=== PATIENT | male | born 1930 | race Caucasian/White ===

== ENCOUNTER 2017-07-03 22:52 | Inpatient (IN) | payer BC ==
[~2017-07-03] VITALS: Ht 170.2 cm; Wt 77.5 kg
[~2017-07-03 22:52] MED LIST: ALBU18HF INHALATION; ATOR20TA38 PO; DABI150C PO; FINA5TAB4 PO; FURO20TA3 PO; IPRA12.93 INH; LEVO25TA53 PO; METO100T13 PO; METO1TAB8 PO; TERA2CAP3 PO
[2017-07-03 23:36] VITALS: TEMP 99.8
[2017-07-03 23:50] LABS: ABNORMAL IP MESSAGE 1; BASOPHILS % 0.3 % (0.0-2.0); EOSINOPHILS # 0.1 10^3/ul (0.0-0.5); EOSINOPHILS % 0.4 % (0.0-7.0); HEMATOCRIT 39.6 % (42.0-52.0); LYMPHOCYTES # 1.2 10^3/ul (0.8-2.9); LYMPHOCYTES % 10.1 % (15.0-51.0); MEAN CORPUSCULAR HEMOGLOBIN 18.9 pg (29.0-33.0); MEAN CORPUSCULAR HGB CONC 30.3 g/dl (32.0-37.0); MEAN CORPUSCULAR VOLUME 62.4 fl (82.0-101.0); MEAN PLATELET VOLUME 9.9 fl (7.4-10.4); MONOCYTE # 1.3 10^3/ul (0.3-0.9); MONOCYTES % 11.1 % (0.0-11.0); NEUTROPHIL # 8.8 10^3/ul (1.6-7.5); NEUTROPHILS % 77.7 % (39.0-77.0); PLATELET COUNT 266 10^3/UL (140-415); POSITIVE DIFF @See below; RED BLOOD COUNT 6.35 10^6/ul (4.70-6.10); RED CELL DISTRIBUTION WIDTH 20.4 % (11.5-14.5); WHITE BLOOD COUNT 11.4 10^3/ul (4.8-10.8)
[2017-07-04] VITALS (9 sets, daily range): BP systolic 113–156; BP diastolic 60–72; PULSE 62–120; RESP 16–20; Ht 170.2 cm; Wt 77.5 kg
[2017-07-04 00:09] LABS: INR 1.6; PROTIME 19.2 Sec (12.2-14.2); PT RATIO 1.5
[2017-07-04 00:10] LABS: PARTIAL THROMBOPLASTIN TIME 66.9 Sec (25.0-35.0)
[2017-07-04 00:13] LABS: ANION GAP 15 (8-16); BLOOD UREA NITROGEN 12 mg/dl (7-20); CALCIUM 8.5 mg/dl (8.4-10.2); CARBON DIOXIDE 34 mmol/L (21-31); CHLORIDE 95 mmol/L (97-110); CREATININE 0.74 mg/dl (0.61-1.24); GLUCOSE 101 mg/dl (70-220); POTASSIUM 4.5 mmol/L (3.5-5.1); SODIUM 139 mmol/L (135-144)
--- NOTE | 2017-07-04 00:17 | RADRPT ---
PROCEDURE: Portable chest x-ray. CLINICAL INDICATION: 86-year-old male chest pain TECHNIQUE: Portable AP view of the chest. COMPARISON: August 28, 2016 FINDINGS: Atherosclerotic calcification and tortuosity of the thoracic aorta. Enlarged cardiopericardial silh ouette has increased in size since prior exam. Left upper lobe lung mass has increased in size and measures 6.5 cm and previously measured 4.7 cm. It is incompletely evaluated on this portable x-ray. Pulmonary vessels are prominent and indistinc t likely due to pulmonary edema. Bilateral lower lobe lung opacity likely represents atelectasis. There are small to moderate bilateral pleural effusions larger on the right. Negative for pneumotho rax. No acute bony abnormality. IMPRESSION: Left upper lobe lung mass has increased in size since prior chest x-ray and remains concerning for a lung neoplasm. Recommend further evaluation with CT if not previously performed. Pulmonary vessels are prominent and indistinct likely due to interstitial pulmonary edema with bilat eral pleural effusions larger on the right. Cardiopericardial silhouette has increased in size since prior day exam that may be due to cardiomeg carol and/or a pericardial effusion. RPTAT: HCTS Physician Amanda Date Time Electronically viewed and signed by Physician Amanda on 07/04/2017 00:17 /
[2017-07-04 00:25] LABS: B-TYPE NATRIURETIC PEPTIDE 1260 PG/ML (0-450)
[2017-07-04 00:26] LABS: TROPONIN-I < 0.012 ng/ml (0.00-0.12)
[2017-07-04] MEDS ORDERED: METOPROLOL 5 MG INJ IV ONE (00:30)
[2017-07-04] MEDS ORDERED: DILTIAZEM 25 MG INJ IV ONE (00:30)
[2017-07-04] MEDS ORDERED: CEFTRIAXONE 1 GM/50 ML (PMX) 50 ML IVPB ONE (01:00)
[2017-07-04] MEDS ORDERED: ONDANSETRON 4 MG INJ IV PRN ×2 (02:00→02:30)
[2017-07-04] MEDS ORDERED: ACETAMINOPHEN 325 MG TAB PO PRN ×2 (02:00→02:30)
[2017-07-04] MEDS ORDERED: DOCUSATE SODIUM 100 MG CAP PO PRN (02:30)
[2017-07-04] MEDS ORDERED: NITROGLYCERIN (SL) 0.4 MG TAB SL PRN (02:30)
[2017-07-04] MEDS ORDERED: HYDROCODONE/APAP (5/325) TAB PO PRN (02:30)
[2017-07-04] MEDS ORDERED: BISACODYL (EC) 5 MG TAB PO PRN (02:30)
[2017-07-04] MEDS ORDERED: morphine 2 MG INJ IV PRN (02:30)
[2017-07-04] MEDS ORDERED: NACL 0.9% 3 ML SYG IV SCH (02:30)
[2017-07-04] MEDS ORDERED: MAGNESIUM HYDROXIDE 30ML CUP PO PRN (02:30)
--- NOTE | 2017-07-04 02:44 | RADRPT ---
PROCEDURE: CT angiogram chest. CLINICAL INDICATION: Shortness of breath. TECHNIQUE: CT angiogram of the chest was performed utilizing axial images with reconstructions in sagittal and coronal planes following the intravenous administration of 100 cc Omnipaque 350 contras t. The administered radiation dose is CTDI 15 mGy, DLP 566 mGy-cm. COMPARISON: No pertinent prior examinations are submitted for comparison. FINDINGS: Pulmonary angiogram: The pulmonary arteries are adequately opacified to the level of the segmental pulmonary artery branches. There is minimal respiratory motion artifact. There is no evidence of p ulmonary embolus. Aortogram: There is no evidence of aortic dissection or aneurysm. Major branches of the aorta are patent. Chest: There is a 7.1 x 6.5 cm mass in the left upper lobe. A smaller, adjacent 2.8 cm 22 nodule is also p resent. There are underlying pulmonary emphysematous changes. There are moderate bilateral pleural effusions with associated atelectasis. Some debris is noted within the right mainstem bronchus. Th ere is likely some mucus plugging in the lower lobe bronchi bilaterally. There is also opacification of the left upper lobe bronchi at the level of the mass, suggesting the presence of endobronchial s pread of tumor. Adenopathy is noted in the left greater than right hilar regions as well as throughout the paratrach eal and subcarinal regions. There is moderate cardiomegaly with small pericardial effusion. Bilateral gynecomastia is noted. Visualized Upper abdomen: Right renal cysts are noted. The liver has a nodular contour suggestive o f cirrhosis. Mild intra-abdominal ascites is noted. Osseous structures: Unremarkable. IMPRESSION: No evidence of pulmonary embolus. Left lung mass most compatible with neoplasm. There may be endobronchial spread of tumor. Mediastinal and bilateral hilar adenopathy. Bilateral pleural effusions. Small pericardial effusion. Likely cirrhotic liver with mild intra-abdominal ascites. RPTAT: HIKT .Ilya Wiggins MD, Date Time Electronically viewed and signed by .Ilya Wiggins MD, on 07/04/2017 02:43 .T/
--- NOTE | 2017-07-04 03:50 | ERA ---
ER Documentation Chief Complaint Date/Time DATE: 07/04/17 TIME: 03:37 Chief Complaint bilateral LE swelling, unable to urinate, shortness of breath, and cough HPI 86-year-old male presents along with his son for bilateral leg swelling is increasing as well as shortness of breath. He also has a cough. He has had some chest discomfort without saying that he is actual chest pain. He is to be on Lasix but was recently taken off of it by his physician. ROS All systems reviewed and are negative except as per history of present illness. Medications Home Meds Active Scripts Ipratropium [place]* (Atrovent HFA*) 12.9 Gm Aer.w.adap, 4 PUFF INH Q4H RESP THERAPY Y for wheezing for 30 Days, #1 INHALER Prov:ANDRE JIMENEZ M.D. 08/29/16 Dabigatran Etexilate Mesylate* (Pradaxa*) 150 Mg Capsule, 150 MG PO BID, #60 CAP Prov:ANDRE JIMENEZ M.D. 08/29/16 Reported Medications Furosemide* (Furosemide*) 20 Mg Tablet, 20 MG PO DAILY, #60 TAB 08/28/16 Finasteride* (Finasteride*) 5 Mg Tablet, 5 MG PO DAILY, TAB 08/28/16 Metoprolol Succinate* (Toprol XL*) 100 Mg Tab.sr.24h, 100 MG PO DAILY, #30 TAB 08/28/16 Atorvastatin Calcium* (Atorvastatin Calcium*) 20 Mg Tablet, 20 MG PO QHS, #30 TAB 08/28/16 Levothyroxine Sodium* (Levothyroxine Sodium*) 25 Mcg Tablet, 25 MCG PO BEFORE BREAKFAST, #30 TAB 08/28/16 Terazosin Hcl* (Terazosin Hcl*) 2 Mg Capsule, 2 MG PO BID, CAP 08/28/16 Allergies Allergies: Coded Allergies: Penicillins (Verified Allergy, Unknown, rash, 08/28/16) aspirin (Verified Allergy, Unknown, rash, 08/28/16) PMhx/Soc History of Surgery: Yes (HERNIA REPAIR, TONSILECTOMY, APPENDECTOMY) Hx Respiratory Disorders: Yes (COPD) Hx Cardiac Disorders: Yes (HTN, A-FIB) Hx Miscellaneous Medical Probl: No Hx Alcohol Use: Yes Hx Substance Use: No Hx Tobacco Use: No Smoking Status: Never smoker Physical Exam Vitals Vital Signs Date Time Temp Pulse Resp B/P Pulse Ox O2 Delivery O2 Flow Rate FiO2 07/03/17 23:36 99.8 110 24 126/87 98 Nasal Cannula 2.0 07/03/17 23:36 Nasal Cannula 2 07/03/17 22:55 99.8 125 24 126/87 86 Physical Exam Const: [] Mild distress Head: Atraumatic Eyes: Normal Conjunctiva ENT: Normal External Ears, Nose and Mouth. Neck: Full range of motion..~ No meningismus. Resp: Decreased bibasilar breath sounds, without wheezes. Cardio: Irregularly irregular tachycardia, no murmurs Abd: Soft, non tender, non distended. Normal bowel sounds Skin: No petechiae or rashes Back: No midline or flank tenderness Ext: No cyanosis, 4+ bilateral lower extremity pitting edema with evidence of venous stasis and erythema. There is calor present over the most erythematous regions in the anterior shins. Neur: Awake and alert and oriented 3, no focal deficits Psych: Normal Mood and Affect Result Diagram: 07/03/17 2314 07/03/17 2320 Results 24 hrs Laboratory Tests Test 07/03/17 23:14 07/03/17 23:20 07/04/17 01:35 White Blood Count 11.410^3/ul Red Blood Count 6.3510^6/ul Hemoglobin 12.0g/dl Hematocrit 39.6% Mean Corpuscular Volume 62.4fl Mean Corpuscular Hemoglobin 18.9pg Mean Corpuscular Hemoglobin Concent 30.3g/dl Red Cell Distribution Width 20.4% Platelet Count 16325^3/UL Mean Platelet Volume 9.9fl Neutrophils % 77.7% Lymphocytes % 10.1% Monocytes % 11.1% Eosinophils % 0.4% Basophils % 0.3% Nucleated Red Blood Cells % 0.0/100WBC Neutrophils # 8.810^3/ul Lymphocytes # 1.210^3/ul Monocytes # 1.310^3/ul Eosinophils # 0.110^3/ul Basophils # 0.010^3/ul Nucleated Red Blood Cells # 0.010^3/ul Prothrombin Time 19.2Sec Prothrombin Time Ratio 1.5 INR International Normalized Ratio 1.60 Activated Partial Thromboplast Time 66.9Sec Sodium Level 139mmol/L Potassium Level 4.5mmol/L Chloride Level 95mmol/L Carbon Dioxide Level 34mmol/L Anion Gap 15 Blood Urea Nitrogen 12mg/dl Creatinine 0.74mg/dl Glucose Level 101mg/dl Calcium Level 8.5mg/dl Troponin I < 0.012ng/ml B-Type Natriuretic Peptide 1260PG/ML Lactic Acid Level 1.6mmol/L Current Medications Medications (Trade) Dose Ordered Sig/Marisol Route PRN Reason Start Time Stop Time Status Last Admin Dose Admin Diltiazem HCl (Cardizem Iv) 20 mg ONCE ONCE IV 07/04/17 00:30 07/04/17 00:31 DC 07/04/17 00:30 Metoprolol Tartrate 5 mg 5 mg ONCE ONCE IV 07/04/17 00:30 07/04/17 00:31 DC 07/04/17 01:28 Ceftriaxone Sodium (Rocephin) 50 ml @ 100 mls/hr ONCE ONCE IVPB 07/04/17 01:00 07/04/17 01:29 DC 07/04/17 01:35 Ondansetron HCl (Zofran Inj) 4 mg ER BRIDGE PRN IV NAUSEA AND/OR VOMITING 07/04/17 02:00 07/05/17 01:59 Acetaminophen (Tylenol Tab) 650 mg ER BRIDGE PRN PO MILD PAIN/FEVER 07/04/17 02:00 07/05/17 01:59 Atorvastatin Calcium (Lipitor) 20 mg QHS PO 07/04/17 21:00 UNV Dabigatran (PRADaxa) 150 mg BID PO 07/04/17 09:00 07/04/17 09:00 DC Finasteride (Proscar) 5 mg DAILY PO 07/04/17 09:00 UNV Levothyroxine Sodium (Synthroid) 25 mcg BEFORE BREAKFAST PO 07/04/17 07:00 UNV Metoprolol Succinate (Toprol Xl) 100 mg DAILY PO 07/04/17 09:00 07/04/17 09:00 DC Terazosin HCl (Hytrin) 2 mg BID PO 07/04/17 09:00 UNV IV Flush (NS 3 ml) 3 ml PER PROTOCOL IV 07/04/17 02:30 Ondansetron HCl (Zofran Inj) 4 mg Q6H PRN IV NAUSEA AND/OR VOMITING 07/04/17 02:30 Nitroglycerin (Nitroglycerin (Sl Tab) 0.4 Mg) 1 tab Q5M PRN SL CHEST PAIN 07/04/17 02:30 Acetaminophen (Tylenol Tab) 650 mg Q6H PRN PO PAIN LEVEL 1-3 OR FEVER 07/04/17 02:30 Acetaminophen/ Hydrocodone Bitart ([place] (5/325)) 1 tab Q6H PRN PO PAIN LEVEL 4-6 07/04/17 02:30 Acetaminophen/ Hydrocodone Bitart ([place] (5/325)) 2 tab Q6H PRN PO PAIN LEVEL 7-10 07/04/17 02:30 Morphine Sulfate (morphine) 2 mg Q4H PRN IV PAIN LEVEL 7-10 07/04/17 02:30 Docusate Sodium (Colace) 100 mg Q12H PRN PO CONSTIPATION 07/04/17 02:30 Magnesium Hydroxide (Milk Of Mag) 30 ml DAILY PRN PO CONSTIPATION 07/04/17 02:30 Bisacodyl (Dulcolax) 5 mg DAILY PRN PO CONSTIPATION 07/04/17 02:30 Pantoprazole (Protonix Tab) 40 mg DAILY@06 PO 07/04/17 06:00 Metoprolol Tartrate (Lopressor) 50 mg BID PO 07/04/17 07:00 Procedures/MDM A. fib with RVR and congestive heart failure. Do not count this is sepsis is I am not can give a patient with congestive heart failure and A. fib with RVR large amounts of fluid. He was given 1 L of normal saline. Patient also has mildly elevated white blood cell count and technically meets sepsis criteria though I believe his A. fib with RVR and congestive heart failure causing increased respiratory rate and tachycardia. Does have evidence of possible cellulitis overlying his venous stasis of his extremities. He was given Rocephin as well as vancomycin. Was given Lasix. On oxygen the patient has no trouble breathing. Is being admitted for acute congestive heart failure and A. fib with RVR. Is being admitted to telemetry. is admitting. EKG interpretation: A. fib with RVR rate of 109, indeterminate axis, no ST or T- wave changes concerning for cardiac ischemia. night monitor interpretation: A. fib with RVR rate of 100-140s. Improved after Cardizem but still RVR. After Cardizem drip rate was controlled. No other arrhythmias Chest x-ray interpretation: Increasing size of large left upper lung mass with bilateral lower lung haziness around diaphragm suspicious for pleural effusions versus infiltrates, no pneumothorax, no fractures CT a chest interpretation: Bilateral pleural effusions with large mass increasing in size left upper lung. No obvious pneumonia. No pneumothorax. No pulmonary embolism no fractures Critical care time 43 minutes: This includes treatment of A. fib with RVR with CHF and lung mass as well as infection, use of Cardizem metoprolol vasoactive medications to control A. fib, addition of Cardizem drip, multiple visits patient's bedside to reassess status, chart reviewed, discussion with patient's son and admitting doctor. This does not include any billable procedures. Departure Diagnosis: Primary Impression: Atrial fibrillation with RVR Additional Impressions: CHF (congestive heart failure) Bilateral lower leg cellulitis Lung mass Dyspnea Condition: Serious SHALOM GUZMAN DO Jul 04, 2017 03:50
[2017-07-04] MEDS ORDERED: SOD CHLORIDE 0.9% 1,000 ML IV ONE (04:00)
[2017-07-04] MEDS ORDERED: DILTIAZEM-D5W 125MG/125ML DRIP 125 ML IV SCH (04:00)
[2017-07-04] MEDS ORDERED: VANCOMYCIN 1 GM (PMX) 250 ML IVPB SCH (04:00)
[2017-07-04] MEDS ORDERED: SOD CHLORIDE 0.9% 100 ML ONE (05:43)
[2017-07-04] MEDS ORDERED: IOHEXOL 100 ML ONE (05:43)
[2017-07-04] MEDS: PANTOPRAZOLE (EC) 40 MG TAB PO SCH (06:07)
[2017-07-04] MEDS: METOPROLOL 50 MG TAB PO SCH ×3 (06:17→21:24)
[2017-07-04] MEDS: LEVOTHYROXINE 25 MCG TAB PO SCH ×2 (06:17→09:07)
[2017-07-04 06:45] LABS: ABNORMAL IP MESSAGE 1; BASOPHILS % 0.3 % (0.0-2.0); EOSINOPHILS % 0.3 % (0.0-7.0); HEMATOCRIT 39.4 % (42.0-52.0); HEMOGLOBIN 11.8 g/dl (14.0-18.0); LYMPHOCYTES % 8.5 % (15.0-51.0); MEAN CORPUSCULAR HEMOGLOBIN 18.7 pg (29.0-33.0); MEAN CORPUSCULAR HGB CONC 29.9 g/dl (32.0-37.0); MEAN CORPUSCULAR VOLUME 62.5 fl (82.0-101.0); MEAN PLATELET VOLUME 9.8 fl (7.4-10.4); MONOCYTE # 1.2 10^3/ul (0.3-0.9); MONOCYTES % 9.6 % (0.0-11.0); NEUTROPHIL # 9.7 10^3/ul (1.6-7.5); PLATELET COUNT 271 10^3/UL (140-415); POSITIVE DIFF @See below; RED CELL DISTRIBUTION WIDTH 20.4 % (11.5-14.5); WHITE BLOOD COUNT 11.9 10^3/ul (4.8-10.8)
[2017-07-04 07:10] LABS: ALBUMIN 3.3 g/dl (3.3-4.9); ALBUMIN/GLOBULIN RATIO 0.94; BILIRUBIN,INDIRECT 0.8 mg/dl (0-1.1); BILIRUBIN,TOTAL 0.8 mg/dl (0.2-1.3); CALCIUM 8.3 mg/dl (8.4-10.2); CREATININE 0.71 mg/dl (0.61-1.24); MAGNESIUM 2.1 mg/dl (1.7-2.5); POTASSIUM 4.6 mmol/L (3.5-5.1); TOTAL PROTEIN 6.8 g/dl (6.1-8.1)
[2017-07-04 07:18] LABS: CREATINE KINASE 32 IU/L (23-200)
[2017-07-04 07:36] LABS: CK-MB 0.65 ng/ml (0.0-2.4); TROPONIN-I < 0.012 ng/ml (0.00-0.12)
[2017-07-04] MEDS ORDERED: DABIGATRAN 150 MG CAP PO SCH (09:00)
[2017-07-04] MEDS ORDERED: METOPROLOL (XL) 100 MG TAB PO SCH (09:00)
[2017-07-04] MEDS: TERAZOSIN 2 MG CAP PO SCH ×2 (09:06→21:24)
[2017-07-04] MEDS: FINASTERIDE 5 MG TAB PO SCH (09:07)
[2017-07-04] MEDS: FUROSEMIDE 40 MG INJ IV SCH ×2 (10:44→17:49)
--- NOTE | 2017-07-04 10:57 | HP ---
Date/Time of Note Date/Time of Note DATE: 07/04/17 TIME: 10:27 Assessment/Plan VTE Prophylaxis VTE Prophylaxis Intervention: other (Pradaxa) Lines/Catheters IV [facility]ter [facility]from [facility]): [facility] Urinary Cath still in place: No Assessment/Plan Assessment/Plan 86-year-old male; 1. Respiratory distress, hypoxemia, known lung mass which seems to have progressed with endobronchial invasion based on CAT scan, possible pneumonia with mucous plugging. Also with infected emphysematous changes on CAT scan agree with IV antibiotics started emergency department. Patient still hesitant regarding biopsy of the lung mass, holding Pradaxa for now, if declines biopsy in the next 24 hours, will resume Pradaxa. Pulmonary consult as needed O2 supplements, Atrovent nebulizer, avoiding beta-agonist given signs of emphysematous changes on CAT scan of the chest. Also on CAT scan signs of effusion, pericardial effusion, overall signs of volume overload, patient started on Lasix 40 mg IV twice daily as of this morning. 2. Atrial fibrillation, chronic, status post rapid ventricular response. Heart rate now controlled, Cardizem discontinued, patient to resume his metoprolol. Holding Pradaxa for now, may resume in the next 24 hours if no plans for biopsy or procedures. Cardiac enzymes negative 3, 2D echocardiogram pending to evaluate ejection fraction. 3. Hypertension: Resuming home medications 4. BPH: Continue home medications 5. Chronic bilateral lower extremities lymphedema, likely exacerbated by volume overload and possible cardiomyopathy in setting of atrial fibrillation, continue Lasix, monitor renal function and electrolytes. 6. Hypothyroidism: Check thyroid function, continue Synthroid for now. Prophylaxis: Protonix for GI prophylaxis, will resume Pradaxa if no procedures. Disposition: Diuresis, heart rate control, possible lung mass biopsy. HPI/ROS Admit Date/Time Admit Date/Time Jul 04, 2017 at 01:45 Hx of Present Illness Chief complaint: Shortness of breath History of presenting illness: 86-year-old male with a known lung mass for years , no recent biopsy, atrial fibrillation on beta-blockers and also Pradaxa, patient reports worsening shortness of breath over the past 3 years, it has progressed significantly lately to a point where he came to the emergency department overnight with complaints of severe dyspnea. Patient does have known atrial fibrillation, he was in rapid ventricular rate on upon arrival, chest x-ray with signs of volume overload. He also has known lung mass however likely has progressed based on the description from the patient. He has been admitted to a telemetry bed. Cardizem drip overnight, heart rate control, will resuming beta blockers. Pradaxa on hold last dose was yesterday morning therefore 24 hours ago, as patient may choose to have a biopsy of this lung mass. Denies any previous history of stroke. CAT scan of the chest showing pleural effusion and small pericardial effusion, patient also with significant lower extremity edema all consistent with volume overload, on diuretic therapy started on this hospitalization, patient reports that he has been off furosemide for the past 6 months as it was not helping with his lower extremity edema. He denies any fevers, chills, chest pain, dysuria, urinary frequency. He does have BPH on medications currently. He reports increasing dry cough over the past few months. CT angiogram of the chest also shows bronchial invasion of the tumor and possible mucous plugging. ROS Constitutional: fatigue Eyes: no complaints ENT: no complaints Respiratory: cough (Dry), shortness of breath Cardiovascular: no complaints Gastrointestinal: no complaints Genitourinary: other (BPH) Musculoskeletal: swelling (Chronic lymphedema lower extremities bilaterally) Skin: no complaints Neurologic: no complaints Lymphatic: lymphadema (Lower extremities bilaterally) Psychological: no complaints PMH/Family/Social Past Medical History Atrial fibrillation, chronic, on Pradaxa for anticoagulation Hypertension BPH Hypothyroidism Left lung mass, based on patient's description of previous mass, there is definitely progression with bronchial invasion on CT angiogram overnight Past Surgical History Status post hiatal hernia repair, 10 years Family History Significant Family History: no pertinent family hx Social History Smoking Status: Former smoker (Patient quit 30 years ago, he used to smoke up to 3 packs/day for 7 years) Drug Use: none Exam/Review of Systems Vital Signs Vitals Vital Signs Date Time Temp Pulse Resp B/P Pulse Ox O2 Delivery O2 Flow Rate FiO2 07/04/17 09:00 97.6 92 16 113/64 96 Nasal Cannula 3.0 Intake and Output 07/03/17 07/03/17 07/04/17 15:00 23:00 07:00 Intake Total 150 ml Output Total 60 ml Balance 90 ml Exam Constitutional: alert, frail, oriented, other (Dyspneic with long conversation) Psych: no complaints Head: normocephalic ENMT: mucosa pink and moist, nl external ears & nose, nl lips & teeth, nl nasal mucosa & septum Neck: non-tender, supple Respiratory: diminished breath sounds (Left upper lobe, bilateral bases), normal air movement, other (Easily dyspneic with conversation, orthopnea) Cardiovascular: irregular rhythm (Atrial fibrillation, rate controlled) Gastrointestinal: non-tender, soft Musculoskeletal: swelling (Bilateral lower extremity lymphedema) Extremities: edema (+4 bilateral lower extremity), normal pulses 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, nl mental status, nl speech (Some dyspnea), other (Generalized weakness) Labs Result Diagram: 07/04/17 0600 07/04/17 0600 Medications Medications Home medication: See medication reconciliation on admission Current Medications Atorvastatin Calcium (Lipitor) 20 mg QHS PO ; Start 07/04/17 at 21:00 Finasteride (Proscar) 5 mg DAILY PO Last administered on 07/04/17 09:07; Admin Dose 5 MG; Start 07/04/17 at 09:00 Terazosin HCl (Hytrin) 2 mg BID PO Last administered on 07/04/17 09:06; Admin Dose 2 MG; Start 07/04/17 at 09:00 Ondansetron HCl (Zofran Inj) 4 mg Q6H PRN IV NAUSEA AND/OR VOMITING; Start at 02:30 Nitroglycerin (Nitroglycerin (Sl Tab) 0.4 Mg) 1 tab Q5M PRN SL CHEST PAIN; Start 07/04/17 at 02:30 Acetaminophen (Tylenol Tab) 650 mg Q6H PRN PO PAIN LEVEL 1-3 OR FEVER; Start at 02:30 Acetaminophen/ Hydrocodone Bitart ([place] (5/325)) 1 tab Q6H PRN PO PAIN LEVEL 4 -6; Start 07/04/17 at 02:30 Acetaminophen/ Hydrocodone Bitart ([place] (5/325)) 2 tab Q6H PRN PO PAIN LEVEL 7 -10; Start 07/04/17 at 02:30 Morphine Sulfate (morphine) 2 mg Q4H PRN IV PAIN LEVEL 7-10; Start 07/04/17 at 02:30 Docusate Sodium (Colace) 100 mg Q12H PRN PO CONSTIPATION; Start 07/04/17 at 02: 30 Magnesium Hydroxide (Milk Of Mag) 30 ml DAILY PRN PO CONSTIPATION; Start at 02:30 Bisacodyl (Dulcolax) 5 mg DAILY PRN PO CONSTIPATION; Start 07/04/17 at 02:30 Pantoprazole (Protonix Tab) 40 mg DAILY@06 PO Last administered on 07/04/17 06 :07; Admin Dose 40 MG; Start 07/04/17 at 06:00 Metoprolol Tartrate 50 mg 50 mg BID PO Last administered on 07/04/17 09:07; Admin Dose 50 MG; Start 07/04/17 at 07:00 Diltiazem HCl (Cardizem-D5W 125 Mg/125 ml Drip) 125 ml @ 5 mls/hr TITRATE IV ; Start 07/04/17 at 04:00 Procedures Procedures PROCEDURE: CT angiogram chest. CLINICAL INDICATION: Shortness of breath. TECHNIQUE: CT angiogram of the chest was performed utilizing axial images with reconstructions in sagittal and coronal planes following the intravenous administration of 100 cc Omnipaque 350 contrast. The administered radiation dose is CTDI 15 mGy, DLP 566 mGy-cm. COMPARISON: No pertinent prior examinations are submitted for comparison. FINDINGS: Pulmonary angiogram: The pulmonary arteries are adequately opacified to the level of the segmental pulmonary artery branches. There is minimal respiratory motion artifact. There is no evidence of pulmonary embolus. Aortogram: There is no evidence of aortic dissection or aneurysm. Major branches of the aorta are patent. Chest: There is a 7.1 x 6.5 cm mass in the left upper lobe. A smaller, adjacent 2.8 cm 22 nodule is also present. There are underlying pulmonary emphysematous changes. There are moderate bilateral pleural effusions with associated atelectasis. Some debris is noted within the right mainstem bronchus. There is likely some mucus plugging in the lower lobe bronchi bilaterally. There is also opacification of the left upper lobe bronchi at the level of the mass, suggesting the presence of endobronchial spread of tumor. Adenopathy is noted in the left greater than right hilar regions as well as throughout the paratracheal and subcarinal regions. There is moderate cardiomegaly with small pericardial effusion. Bilateral gynecomastia is noted. Visualized Upper abdomen: Right renal cysts are noted. The liver has a nodular contour suggestive of cirrhosis. Mild intra-abdominal ascites is noted. Osseous structures: Unremarkable. IMPRESSION: No evidence of pulmonary embolus. Left lung mass most compatible with neoplasm. There may be endobronchial spread of tumor. Mediastinal and bilateral hilar adenopathy. Bilateral pleural effusions. Small pericardial effusion. Likely cirrhotic liver with mild intra-abdominal ascites. RPTAT: HIKT .Ilya Wiggins MD, MD Date Time Electronically viewed and signed by .Ilya Wiggins MD, MD on 07/04/2017 02:43 LINDA MASON Jul 04, 2017 10:37
[2017-07-04] MEDS ORDERED: VANCOMYCIN IV PER PHARMACY XX SCH (11:00)
[2017-07-04] MEDS: IPRATROPIUM (NEB) 0.5 MG/2.5 ML AMP HHN PRN (11:32)
[2017-07-04 14:12] LABS: CREATINE KINASE 31 IU/L (23-200)
[2017-07-04 14:23] LABS: CK-MB 0.74 ng/ml (0.0-2.4); TROPONIN-I < 0.012 ng/ml (0.00-0.12)
[2017-07-04] MEDS: VANCOMYCIN 1.5 GM in SOD CHLORIDE 0.9% 250 ML IVPB SCH (15:09)
[2017-07-04] MEDS: ATORVASTATIN 20 MG TAB PO SCH (21:24)
[2017-07-05] VITALS (12 sets, daily range): BP systolic 93–128; BP diastolic 54–67; PULSE 70–149; RESP 15–20
[2017-07-05] MEDS: CEFTRIAXONE 1 GM/50 ML (PMX) 50 ML IVPB SCH ×2 (00:19→23:42)
[2017-07-05] MEDS: HYDROCODONE/APAP (5/325) TAB PO PRN ×2 (01:34→23:50)
[2017-07-05] MEDS: IPRATROPIUM (NEB) 0.5 MG/2.5 ML AMP HHN PRN ×2 (02:07→22:00)
[2017-07-05] MEDS: PANTOPRAZOLE (EC) 40 MG TAB PO SCH (06:27)
[2017-07-05] MEDS: FUROSEMIDE 40 MG INJ IV SCH (06:27)
[2017-07-05 07:40] LABS: ABNORMAL IP MESSAGE 1; BASOPHILS % 0.4 % (0.0-2.0); EOSINOPHILS # 0.1 10^3/ul (0.0-0.5); HEMATOCRIT 36.8 % (42.0-52.0); HEMOGLOBIN 11.2 g/dl (14.0-18.0); LYMPHOCYTES # 1.1 10^3/ul (0.8-2.9); LYMPHOCYTES % 10.5 % (15.0-51.0); MEAN CORPUSCULAR HEMOGLOBIN 19.1 pg (29.0-33.0); MEAN CORPUSCULAR HGB CONC 30.4 g/dl (32.0-37.0); MEAN CORPUSCULAR VOLUME 62.9 fl (82.0-101.0); MEAN PLATELET VOLUME 10.5 fl (7.4-10.4); MONOCYTE # 1.2 10^3/ul (0.3-0.9); MONOCYTES % 11.3 % (0.0-11.0); NEUTROPHIL # 8.3 10^3/ul (1.6-7.5); NEUTROPHILS % 76.2 % (39.0-77.0); PLATELET COUNT 273 10^3/UL (140-415); POSITIVE DIFF @See below; RED BLOOD COUNT 5.85 10^6/ul (4.70-6.10); WHITE BLOOD COUNT 10.9 10^3/ul (4.8-10.8)
[2017-07-05 08:06] LABS: ALBUMIN 2.9 g/dl (3.3-4.9); ALBUMIN/GLOBULIN RATIO 0.82; BILIRUBIN,INDIRECT 0.5 mg/dl (0-1.1); BILIRUBIN,TOTAL 0.5 mg/dl (0.2-1.3); CHOL/HDL RATIO 2.9 RATIO; CREATININE 0.79 mg/dl (0.61-1.24); POTASSIUM 4.1 mmol/L (3.5-5.1); TOTAL PROTEIN 6.4 g/dl (6.1-8.1)
[2017-07-05] MEDS: METOPROLOL 50 MG TAB PO SCH (09:00)
[2017-07-05] MEDS: TERAZOSIN 2 MG CAP PO SCH ×2 (09:24→20:28)
[2017-07-05] MEDS: FINASTERIDE 5 MG TAB PO SCH (09:24)
--- NOTE | 2017-07-05 13:55 | PN ---
Date/Time of Note Date/Time of Note DATE: 07/05/17 TIME: 13:34 Assessment/Plan VTE Prophylaxis VTE Prophylaxis Intervention: other (Back on Pradaxa ) Lines/Catheters IV C[facility]ter Type (from [facility]): Saline Lock Urinary Cath still in place: No Assessment/Plan Assessment/Plan 86-year-old male; 1. Respiratory distress, hypoxemia, known lung mass which seems to have progressed with endobronchial invasion based on CAT scan, possible pneumonia with mucous plugging. Also with emphysematous changes on CAT scan agree with IV antibiotics started emergency department. Patient declining biopsy of the lung mass, resume Pradaxa. Appreciate recommendation from pulmonary, home oxygen will be arranged at discharge. O2 supplements, Atrovent nebulizer, avoiding beta-agonist given signs of emphysematous changes on CAT scan of the chest. Therefore patient to also switch his rate control medications from beta-blockers to calcium channel blockers. Also on CAT scan signs of effusion, pericardial effusion, overall signs of volume overload, patient on diuretic 2. Atrial fibrillation, chronic, status post rapid ventricular response. Heart rate now controlled while on Cardizem drip, now back on metoprolol with issues with control, I will switch him off metoprolol and start him on Cardizem p.o. for heart rate control. Patient reports that he had some issues with digoxin and had to be switched off of it in the past. Resuming Pradaxa today. Cardiac enzymes negative 3, 2D echocardiogram pending to evaluate ejection fraction. 3. Hypertension: Continue home medications 4. BPH: Continue home medications 5. Chronic bilateral lower extremities lymphedema, likely exacerbated by volume overload and possible cardiomyopathy in setting of atrial fibrillation, continue Lasix, monitor renal function and electrolytes. 6. Hypothyroidism: Continue Synthroid for now. Prophylaxis: Protonix for GI prophylaxis, will resume Pradaxa if no procedures. Disposition: Diuresis, heart rate control, home oxygen at discharge, patient declining any further diagnostic studies when he comes to his lung mass, no biopsy. Subjective 24 Hr Interval Summary Free Text/Dictation Patient with no complaints today, he feels slightly better, still dyspneic and hypoxemic with exertion. He had another discussion with from pulmonary regarding his lung mass, he declines any further diagnosis and therefore no biopsy as he is not planning to treat. He agrees with supplemental oxygen I will resume his anticoagulation for his atrial fibrillation today, will also switch him off beta-blockers on to calcium channel ruthie due to the fact that he does have significant emphysema on CAT scan. Exam/Review of Systems Vital Signs Vitals Vital Signs Date Time Temp Pulse Resp B/P Pulse Ox O2 Delivery O2 Flow Rate FiO2 07/05/17 12:10 149 07/05/17 11:45 98.1 20 128/58 92 07/05/17 08:42 Nasal Cannula 4.0 Intake and Output 07/04/17 07/04/17 07/05/17 15:00 23:00 07:00 Intake Total 750 ml Output Total 180 ml 1140 ml Balance -180 ml -390 ml Exam Constitutional: alert, frail, oriented Respiratory: diminished breath sounds (Especially left lung), labored breathing (Occasionally) Cardiovascular: irregular rhythm (Atrial fibrillation with occasional rapid ventricular rate) Gastrointestinal: non-tender, soft Musculoskeletal: nl extremities to inspection, other (No edema, clubbing or cyanosis) Extremities: normal pulses, other (No edema noted) Neurological: SENIOR SYSTEMS ARCHITECT II-XII intact, nl mental status, nl speech, nl strength Results Result Diagram: 07/05/17 0704 07/05/17 0704 Results 24 hrs Laboratory Tests Test 07/04/17 23:20 07/05/17 07:04 07/05/17 11:31 Lactic Acid Level 2.2 *H 1.5 White Blood Count 10.9 H Red Blood Count 5.85 Hemoglobin 11.2 L Hematocrit 36.8 L Mean Corpuscular Volume 62.9 L Mean Corpuscular Hemoglobin 19.1 L Mean Corpuscular Hemoglobin Concent 30.4 L Red Cell Distribution Width 20.0 H Platelet Count 273 Mean Platelet Volume 10.5 H Neutrophils % 76.2 Lymphocytes % 10.5 L Monocytes % 11.3 H Eosinophils % 1.0 Basophils % 0.4 Nucleated Red Blood Cells % 0.0 Neutrophils # 8.3 H Lymphocytes # 1.1 Monocytes # 1.2 H Eosinophils # 0.1 Basophils # 0.0 Nucleated Red Blood Cells # 0.0 Sodium Level 139 Potassium Level 4.1 Chloride Level 93 L Carbon Dioxide Level 35 H Anion Gap 15 Blood Urea Nitrogen 17 Creatinine 0.79 Glucose Level 75 Calcium Level 8.0 L Magnesium Level 2.0 Total Bilirubin 0.5 Direct Bilirubin 0.00 Indirect Bilirubin 0.5 Aspartate Amino Transf (AST/SGOT) 27 Alanine Aminotransferase (ALT/SGPT) 31 Alkaline Phosphatase 201 H Total Protein 6.4 Albumin 2.9 L Globulin 3.50 H Albumin/Globulin Ratio 0.82 Triglycerides Level 58 Cholesterol Level 74 L LDL Cholesterol, Calculated 37 HDL Cholesterol 25 L Cholesterol/HDL Ratio 2.9 Medications Medications Current Medications Atorvastatin Calcium (Lipitor) 20 mg QHS PO Last administered on 07/04/17 21: 24; Admin Dose 20 MG; Start 07/04/17 at 21:00 Finasteride (Proscar) 5 mg DAILY PO Last administered on 07/05/17 09:24; Admin Dose 5 MG; Start 07/04/17 at 09:00 Terazosin HCl (Hytrin) 2 mg BID PO Last administered on 07/05/17 09:24; Admin Dose 2 MG; Start 07/04/17 at 09:00 Ondansetron HCl (Zofran Inj) 4 mg Q6H PRN IV NAUSEA AND/OR VOMITING; Start at 02:30 Nitroglycerin (Nitroglycerin (Sl Tab) 0.4 Mg) 1 tab Q5M PRN SL CHEST PAIN; Start 07/04/17 at 02:30 Acetaminophen (Tylenol Tab) 650 mg Q6H PRN PO PAIN LEVEL 1-3 OR FEVER; Start at 02:30 Acetaminophen/ Hydrocodone Bitart ([place] (5/325)) 1 tab Q6H PRN PO PAIN LEVEL 4 -6 Last administered on 07/05/17 01:34; Admin Dose 1 TAB; Start 07/04/17 at 02: 30 Acetaminophen/ Hydrocodone Bitart ([place] (5/325)) 2 tab Q6H PRN PO PAIN LEVEL 7 -10; Start 07/04/17 at 02:30 Morphine Sulfate (morphine) 2 mg Q4H PRN IV PAIN LEVEL 7-10; Start 07/04/17 at 02:30 Docusate Sodium (Colace) 100 mg Q12H PRN PO CONSTIPATION; Start 07/04/17 at 02: 30 Magnesium Hydroxide (Milk Of Mag) 30 ml DAILY PRN PO CONSTIPATION; Start at 02:30 Bisacodyl (Dulcolax) 5 mg DAILY PRN PO CONSTIPATION; Start 07/04/17 at 02:30 Pantoprazole (Protonix Tab) 40 mg DAILY@06 PO Last administered on 07/05/17 06 :27; Admin Dose 40 MG; Start 07/04/17 at 06:00 Metoprolol Tartrate 50 mg 50 mg BID PO Last administered on 07/04/17 21:24; Admin Dose 50 MG; Start 07/04/17 at 07:00 Diltiazem HCl 125 ml @ 5 mls/hr TITRATE IV ; Start 07/04/17 at 04:00 Ceftriaxone Sodium 50 ml @ 100 mls/hr Q24H IVPB Last administered on 00:19; Admin Dose 100 MLS/HR; Start 07/04/17 at 23:00 Vancomycin HCl/ Sodium Chloride (Vancocin/NS) 250 ml @ 83.333 mls/ hr Q24H IVPB Last administered on 07/04/17 15:09; Admin Dose 83.333 MLS/HR; Start at 14:00 LINDA MASON Jul 05, 2017 13:44
--- NOTE | 2017-07-05 14:21 | RADRPT ---
Echocardiogram Report Patient Name: MEGHAN VARGAS Gender: Male Date: 1930 Study Date: 04-Jul-2017 Stacker Attendant: Bo Ozuna [facility] [[email or web address]] Location: 518-A Ref. Physician: FANNY MASON Quality: Adequate Procedures: Transthoracic echocardiogram with complete 2D, M-Mode, and doppler examination. Indications: Atrial Fibrillation. 2D/M Mode Doppler Measurement Value Normal Ranges Measurement Value Normal Ranges LVIDd 2D 3.8 3.5 - 5.6 cm AV Peak Vincenzo 1.2 m/sec LVIDs 2D 2.5 2.1 - 4.1 cm AV Peak PG 6.0 mmHg FS 2D 34.8 % LVOT Peak Vincenzo 0.6 m/sec LVPWd 2D 1.3 0.6 - 1.1 cm LVOT Peak PG 1.0 mmHg IVSd 2D 1.3 0.6 - 1.1 cm MV E Peak Vincenzo 1.0 m/sec IVS/LVPW 2D 1.0 TR Peak Vincenzo 3.4 m/sec AoR Diam 2D 3.1 2.0 - 3.7 cm TR Peak PG 47.0 mmHg LA/Ao 2D 2 0 - 1 RVSP 62.0 mmHg EDV 2D 57.1 cm3 ESV 2D 15.8 cm3 LA Dimen 2D 4.9 2.3 - 4.0 cm Findings Left Ventricle: Normal left ventricular systolic function. Normal left ventricular cavity size. Mild concentric left ventricular hypertrophy. Ejection fraction is visually estimated at 60 %. Abnormal Diastolic Function. Right Ventricle: Normal right ventricular systolic function. Mild enlargement of right ventricle. Left Atrium: There is moderate enlargement of left atrium. Right Atrium: The right atrium is normal in size. Mitral Valve: Mild mitral leaflet calcification. Mild mitral annular calcification. Mild mitral valve regurgitation. Aortic Valve: Normal appearance of the aortic valve. No significant aortic stenosis or insufficiency. Tricuspid Valve: Normal appearance of the tricuspid valve. Estimated peak PA systolic pressure 62 mmHg. There is mild to moderate tricuspid regurgitation. Pulmonic Valve: Pulmonic valve not well visualized. There is trace pulmonic regurgitation. Pericardium: Trivial pericardial effusion. Aorta: Normal aortic root. IVC: Dilated inferior vena cava with poor inspiratory collapse consistent with elevated right atrial pressures. Conclusions 1.Normal left ventricular systolic function. Normal left ventricular cavity size. Mild concentric left ventricular hypertrophy. Ejection fraction is visually estimated at 60 %. Abnormal Diastolic Function. 2.Normal right ventricular systolic function. Mild enlargement of right ventricle. 3.There is moderate enlargement of left atrium. 4.The right atrium is normal in size. 5.Mild mitral valve regurgitation. 6.Estimated peak PA systolic pressure 62 mmHg. There is mild to moderate tricuspid regurgitation. 7.No significant aortic stenosis or insufficiency. 8.Trivial pericardial effusion. Electronically Signed By: Dandy Dickerson 05-Jul-2017 14:20:07 -0700 Patient Name: MEGHAN VARGAS Study Date: 04-Jul-2017 [id number]
[2017-07-05] MEDS: VANCOMYCIN 1.5 GM in SOD CHLORIDE 0.9% 250 ML IVPB SCH (14:37)
[2017-07-05] MEDS: DILTIAZEM 60 MG TAB PO SCH ×2 (18:32→23:50)
[2017-07-05] MEDS: FUROSEMIDE 40 MG TAB PO SCH (18:32)
[2017-07-05] MEDS: ATORVASTATIN 20 MG TAB PO SCH (20:29)
[2017-07-06] VITALS (12 sets, daily range): BP systolic 106–117; BP diastolic 53–59; PULSE 90–112; RESP 18–22
--- NOTE | 2017-07-06 03:02 | CONS ---
DATE OF ADMISSION: 07/04/2017 DATE OF CONSULTATION: 07/05/2017 REASON FOR CONSULT: Abnormal chest CT. HISTORY OF PRESENT ILLNESS: This is a pleasant 86-year-old gentleman who presented with a several day history of increasing shortness of breath, orthopnea, and PND. On admission, he was found to have a large spiculated mass in the left upper lobe concerning for likely malignancy. In addition to that, he has a well lobulated calcified nodule present also. Upon further questioning, the patient states he has had a small lesion for many years. He had a CT-guided biopsy of this performed many years ago, and it was found to be benign. Upon further questioning, I have told him that he has a new large lesion concerning for malignancy. The patient states that he does not want further workup, as he would not pursue further treatment given his advanced age. He wishes to be treated symptomatically only. He denies any hemoptysis or hematemesis. No nausea or vomiting. Review of CT shows large spiculated mass in the left upper lobe with adjacent lobulated calcified lesion. In addition, he has moderate emphysematous changes. PAST MEDICAL HISTORY: COPD, hypothyroidism, atrial fibrillation on anticoagulation, and history of hypertension. MEDICATION: Per chart. ALLERGIES: NONE. SOCIAL HISTORY: He is an ex-smoker. He quit 30 years ago. Previously he smoked multiple packs per day. PHYSICAL EXAMINATION: GENERAL: Pleasant, elderly gentleman, awake, alert, oriented, talking in full and complete sentences. VITAL SIGNS: Currently afebrile, pulse 90 blood pressure, 128/58, and O2 sat 96 percent on 2 L nasal cannula. NECK: Supple. No JVD. No lymphadenopathy. CARDIAC: S1, S2. No added sounds or murmurs. LUNGS: Chest has diminished air entry bilaterally. ABDOMEN: Soft and nontender. No guarding or rebound. EXTREMITIES: Sounds clinically grossly intact. No focal deficits. LABORATORY: White count 10.9, hemoglobin 11.2. Chemistry is within normal limits. Chest CT findings as above. IMPRESSION: 1. Likely primary lung cancer with adjacent granuloma. 2. Underlying history of COPD. PLAN: I had an extensive discussion with the patient who has opted not to pursue further aggressive treatment and states that he would not want chemotherapy or surgery even if this was possible. Since these are his wishes, putting him through a CT- guided biopsy, which has a risk of pneumothorax given underlying emphysematous changes, seems unnecessary. The patient agrees, and wishes to pursue only palliative measures. Supplemental O2 and palliative care consult would be appropriate at this point in time. Thank you, again, Dr. Gillespie, for this consultation. Dictated By: Ulices Luis MD /anmol/elenita /Document#: [id number]
[2017-07-06] MEDS: FUROSEMIDE 40 MG TAB PO SCH ×2 (06:10→17:51)
[2017-07-06] MEDS: DILTIAZEM 60 MG TAB PO SCH ×3 (06:10→17:51)
[2017-07-06] MEDS: LEVOTHYROXINE 25 MCG TAB PO SCH (06:11)
[2017-07-06] MEDS: PANTOPRAZOLE (EC) 40 MG TAB PO SCH (06:11)
[2017-07-06 07:57] LABS: BASOPHILS % 0.2 % (0.0-2.0); EOSINOPHILS # 0.1 10^3/ul (0.0-0.5); EOSINOPHILS % 1.5 % (0.0-7.0); HEMATOCRIT 35.4 % (42.0-52.0); HEMOGLOBIN 10.8 g/dl (14.0-18.0); LYMPHOCYTES # 0.8 10^3/ul (0.8-2.9); LYMPHOCYTES % 8.9 % (15.0-51.0); MEAN CORPUSCULAR HEMOGLOBIN 19.2 pg (29.0-33.0); MEAN CORPUSCULAR HGB CONC 30.5 g/dl (32.0-37.0); MEAN CORPUSCULAR VOLUME 62.9 fl (82.0-101.0); MEAN PLATELET VOLUME 10.2 fl (7.4-10.4); NEUTROPHILS % 77.9 % (39.0-77.0); PLATELET COUNT 238 10^3/UL (140-415); RED BLOOD COUNT 5.63 10^6/ul (4.70-6.10); RED CELL DISTRIBUTION WIDTH 18.5 % (11.5-14.5); WHITE BLOOD COUNT 9.4 10^3/ul (4.8-10.8)
[2017-07-06] MEDS: FINASTERIDE 5 MG TAB PO SCH (08:22)
[2017-07-06] MEDS: TERAZOSIN 2 MG CAP PO SCH ×2 (08:22→20:28)
[2017-07-06 08:52] LABS: MAGNESIUM 1.9 mg/dl (1.7-2.5); PHOSPHORUS 3.8 mg/dl (2.5-4.9)
[2017-07-06 09:02] LABS: CALCIUM 7.9 mg/dl (8.4-10.2); CREATININE 0.79 mg/dl (0.61-1.24); POTASSIUM 3.7 mmol/L (3.5-5.1)
[2017-07-06] MEDS: IPRATROPIUM (NEB) 0.5 MG/2.5 ML AMP HHN PRN ×3 (10:03→22:04)
[2017-07-06] MEDS ORDERED: PENDING SANTYL ORDER FOR WOUND CARE XX PRN (11:00)
--- NOTE | 2017-07-06 11:35 | CONS ---
Date/Time of Note Date/Time of Note DATE: 07/06/17 TIME: 11:33 Consult Date/Type/Reason Admit Date/Time Jul 04, 2017 at 01:45 Initial Consult Date Type of Consultation: Pulmonary Subjective Patient comfortable this morning no new events Objective Vital Signs Date Time Temp Pulse Resp B/P Pulse Ox O2 Delivery O2 Flow Rate FiO2 07/06/17 11:00 98.4 111 19 108/55 90 07/06/17 10:06 4.0 07/06/17 10:05 Nasal Cannula Intake and Output 07/05/17 07/05/17 07/06/17 14:59 22:59 06:59 Intake Total 500 ml 720 ml 350 ml Output Total 600 ml 1000 ml 950 ml Balance -100 ml -280 ml -600 ml Exam GENERAL: VITAL SIGNS: per chart NECK: Supple. No JVD or lymphadenopathy. CARDIAC EXAM: S1, S2. No added sounds or murmurs. CHEST: clear bilaterally, No added sounds, rales or wheezes ABDOMEN: Soft, nontender. No guarding or rebound. EXTREMITIES: No cyanosis, clubbing or edema. NEUROLOGIC: Generalized weakness. No focal deficits. Results/Medications Result Diagram: 07/06/17 0729 07/06/17 0729 Results 24 hrs Laboratory Tests Test 07/06/17 07:29 White Blood Count 9.4 Red Blood Count 5.63 Hemoglobin 10.8 L Hematocrit 35.4 L Mean Corpuscular Volume 62.9 L Mean Corpuscular Hemoglobin 19.2 L Mean Corpuscular Hemoglobin Concent 30.5 L Red Cell Distribution Width 18.5 H Platelet Count 238 Mean Platelet Volume 10.2 Neutrophils % 77.9 H Lymphocytes % 8.9 L Monocytes % 11.0 Eosinophils % 1.5 Basophils % 0.2 Nucleated Red Blood Cells % 0.0 Neutrophils # (Manual) 7.3 Lymphocytes # 0.8 Monocytes # 1.0 H Eosinophils # 0.1 Basophils # 0.0 Nucleated Red Blood Cells # 0.0 Sodium Level 139 Potassium Level 3.7 Chloride Level 92 L Carbon Dioxide Level 36 H Anion Gap 15 Blood Urea Nitrogen 18 Creatinine 0.79 Glucose Level 84 Calcium Level 7.9 L Phosphorus Level 3.8 Magnesium Level 1.9 Medications Current Medications Atorvastatin Calcium (Lipitor) 20 mg QHS PO Last administered on 07/05/17t 20: 29; Admin Dose 20 MG; Start 07/04/17 at 21:00 Finasteride (Proscar) 5 mg DAILY PO Last administered on 07/06/17 08:22; Admin Dose 5 MG; Start 07/04/17 at 09:00 Terazosin HCl (Hytrin) 2 mg BID PO Last administered on 07/06/17 08:22; Admin Dose 2 MG; Start 07/04/17 at 09:00 Ondansetron HCl (Zofran Inj) 4 mg Q6H PRN IV NAUSEA AND/OR VOMITING; Start at 02:30 Nitroglycerin (Nitroglycerin (Sl Tab) 0.4 Mg) 1 tab Q5M PRN SL CHEST PAIN; Start 07/04/17 at 02:30 Acetaminophen (Tylenol Tab) 650 mg Q6H PRN PO PAIN LEVEL 1-3 OR FEVER; Start at 02:30 Acetaminophen/ Hydrocodone Bitart ([place] (5/325)) 1 tab Q6H PRN PO PAIN LEVEL 4 -6 Last administered on 07/05/17 23:50; Admin Dose 1 TAB; Start 07/04/17 at 02: 30 Acetaminophen/ Hydrocodone Bitart ([place] (5/325)) 2 tab Q6H PRN PO PAIN LEVEL 7 -10; Start 07/04/17 at 02:30 Morphine Sulfate (morphine) 2 mg Q4H PRN IV PAIN LEVEL 7-10; Start 07/04/17 at 02:30 Docusate Sodium (Colace) 100 mg Q12H PRN PO CONSTIPATION; Start 07/04/17 at 02: 30 Magnesium Hydroxide (Milk Of Mag) 30 ml DAILY PRN PO CONSTIPATION; Start at 02:30 Bisacodyl (Dulcolax) 5 mg DAILY PRN PO CONSTIPATION; Start 07/04/17 at 02:30 Pantoprazole 40 mg 40 mg DAILY@06 PO Last administered on 07/06/17 06:11; Admin Dose 40 MG; Start 07/04/17 at 06:00 Ceftriaxone Sodium 50 ml @ 100 mls/hr Q24H IVPB Last administered on 23:42; Admin Dose 100 MLS/HR; Start 07/04/17 at 23:00 Vancomycin HCl/ Sodium Chloride (Vancocin/NS) 250 ml @ 83.333 mls/ hr Q24H IVPB Last administered on 07/05/17 14:37; Admin Dose 83.333 MLS/HR; Start at 14:00 Diltiazem HCl (Cardizem) 60 mg Q6 PO Last administered on 07/06/17 06:10; Admin Dose 60 MG; Start 07/05/17 at 18:00 Miscellaneous Information (Pending Santyl Order For Wound Care) This patient francisco... PRN PRN XX WOUND CARE; Start 07/06/17 at 11:00 Miscellaneous Information (*Rx Drug Level Order Reminder*) 1 ONCE ONCE XX ; Start 07/07/17 at 13:00; Stop 07/07/17 at 13:01 Assessment/Plan Chief Complaint/Hosp Course Assessment 1. Likely advanced primary lung cancer. 2. Underlying COPD Plan 1. Patient declined a biopsy and further treatment which I think is appropriate given his advanced age. 2. Consider discharge With supplemental O2 and antibiotics for postobstructive pneumonia 3. Palliative care consult may be appropriate Problems: RUDDY DEY MD, [facility] Jul 06, 2017 11:35
[2017-07-06] MEDS: VANCOMYCIN 1.5 GM in SOD CHLORIDE 0.9% 250 ML IVPB SCH (13:31)
[2017-07-06] MEDS ORDERED: VITAMIN A & D 5 GM OINT PACKET TOP ONE (13:36)
--- NOTE | 2017-07-06 17:27 | PN ---
Date/Time of Note Date/Time of Note DATE: 07/06/17 TIME: 17:24 Assessment/Plan VTE Prophylaxis VTE Prophylaxis Intervention: other Lines/Catheters IV [facility]ter Type (from [facility]): Saline Lock Urinary Cath still in place: No Assessment/Plan Chief Complaint/Hosp Course 1. Respiratory distress, hypoxemia, known lung mass which seems to have progressed with endobronchial invasion based on CAT scan, possible pneumonia with mucous plugging. Also with emphysematous changes on CAT scan agree with IV antibiotics started emergency department. Patient declining biopsy of the lung mass, resume Pradaxa. Appreciate recommendation from pulmonary, home oxygen will be arranged at discharge. O2 supplements, Atrovent nebulizer, avoiding beta-agonist given signs of emphysematous changes on CAT scan of the chest. Therefore patient to also switch his rate control medications from beta-blockers to calcium channel blockers. Also on CAT scan signs of effusion, pericardial effusion, overall signs of volume overload, patient on diuretic 2. Atrial fibrillation, chronic, status post rapid ventricular response. Heart rate now controlled while on Cardizem drip, now back on metoprolol with issues with control, I will switch him off metoprolol and start him on Cardizem p.o. for heart rate control. Patient reports that he had some issues with digoxin and had to be switched off of it in the past. Resuming Pradaxa today. Cardiac enzymes negative 3, 2D echocardiogram shows a normal ejection fraction 3. Hypertension: Continue home medications 4. BPH: Continue home medications 5. Chronic bilateral lower extremities lymphedema, likely exacerbated by volume overload and possible cardiomyopathy in setting of atrial fibrillation, continue Lasix, monitor renal function and electrolytes. 6. Hypothyroidism: Continue Synthroid for now. Prophylaxis: Protonix for GI prophylaxis, will resume Pradaxa if no procedures. Disposition: Diuresis, heart rate control, home oxygen at discharge, patient declining any further diagnostic studies when he comes to his lung mass, no biopsy. Problems: Subjective 24 Hr Interval Summary Respiratory: shortness of breath Exam/Review of Systems Vital Signs Vitals Vital Signs Date Time Temp Pulse Resp B/P Pulse Ox O2 Delivery O2 Flow Rate FiO2 07/06/17 16:12 112 07/06/17 15:51 98.1 19 106/53 93 07/06/17 14:10 4.0 07/06/17 10:05 Nasal Cannula Intake and Output 07/05/17 07/05/1707/06/17 15:00 23:00 07:00 Intake Total 500 ml 720 ml 350 ml Output Total 600 ml 1000 ml 950 ml Balance -100 ml -280 ml -600 ml Exam Constitutional: alert Respiratory: clear to auscultation Cardiovascular: regular rate and rhythm Gastrointestinal: soft, No distended Musculoskeletal: nl extremities to inspection Results Result Diagram: 07/06/17 0729 07/06/17 0729 Results 24 hrs Laboratory Tests Test 07/06/17 07:29 White Blood Count 9.4 Red Blood Count 5.63 Hemoglobin 10.8 L Hematocrit 35.4 L Mean Corpuscular Volume 62.9 L Mean Corpuscular Hemoglobin 19.2 L Mean Corpuscular Hemoglobin Concent 30.5 L Red Cell Distribution Width 18.5 H Platelet Count 238 Mean Platelet Volume 10.2 Neutrophils % 77.9 H Lymphocytes % 8.9 L Monocytes % 11.0 Eosinophils % 1.5 Basophils % 0.2 Nucleated Red Blood Cells % 0.0 Neutrophils # (Manual) 7.3 Lymphocytes # 0.8 Monocytes # 1.0 H Eosinophils # 0.1 Basophils # 0.0 Nucleated Red Blood Cells # 0.0 Sodium Level 139 Potassium Level 3.7 Chloride Level 92 L Carbon Dioxide Level 36 H Anion Gap 15 Blood Urea Nitrogen 18 Creatinine 0.79 Glucose Level 84 Calcium Level 7.9 L Phosphorus Level 3.8 Magnesium Level 1.9 Medications Medications Current Medications Atorvastatin Calcium (Lipitor) 20 mg QHS PO Last administered on 07/05/17 20: 29; Admin Dose 20 MG; Start 07/04/17 at 21:00 Finasteride (Proscar) 5 mg DAILY PO Last administered on 07/06/17 08:22; Admin Dose 5 MG; Start 07/04/17 at 09:00 Terazosin HCl (Hytrin) 2 mg BID PO Last administered on 07/06/17 08:22; Admin Dose 2 MG; Start 07/04/17 at 09:00 Ondansetron HCl (Zofran Inj) 4 mg Q6H PRN IV NAUSEA AND/OR VOMITING; Start at 02:30 Nitroglycerin (Nitroglycerin (Sl Tab) 0.4 Mg) 1 tab Q5M PRN SL CHEST PAIN; Start 07/04/17 at 02:30 Acetaminophen (Tylenol Tab) 650 mg Q6H PRN PO PAIN LEVEL 1-3 OR FEVER; Start at 02:30 Acetaminophen/ Hydrocodone Bitart ([place] (5/325)) 1 tab Q6H PRN PO PAIN LEVEL 4 -6 Last administered on 07/05/17 23:50; Admin Dose 1 TAB; Start 07/04/17 at 02: 30 Acetaminophen/ Hydrocodone Bitart ([place] (5/325)) 2 tab Q6H PRN PO PAIN LEVEL 7 -10; Start 07/04/17 at 02:30 Morphine Sulfate (morphine) 2 mg Q4H PRN IV PAIN LEVEL 7-10; Start 07/04/17 at 02:30 Docusate Sodium (Colace) 100 mg Q12H PRN PO CONSTIPATION; Start 07/04/17 at 02: 30 Magnesium Hydroxide (Milk Of Mag) 30 ml DAILY PRN PO CONSTIPATION; Start at 02:30 Bisacodyl (Dulcolax) 5 mg DAILY PRN PO CONSTIPATION; Start 07/04/17 at 02:30 Pantoprazole 40 mg 40 mg DAILY@06 PO Last administered on 07/06/17 06:11; Admin Dose 40 MG; Start 07/04/17 at 06:00 Ceftriaxone Sodium 50 ml @ 100 mls/hr Q24H IVPB Last administered on 23:42; Admin Dose 100 MLS/HR; Start 07/04/17 at 23:00 Vancomycin HCl/ Sodium Chloride (Vancocin/NS) 250 ml @ 83.333 mls/ hr Q24H IVPB Last administered on 07/06/17 13:31; Admin Dose 83.333 MLS/HR; Start at 14:00 Diltiazem HCl (Cardizem) 60 mg Q6 PO Last administered on 07/06/17 12:30; Admin Dose 60 MG; Start 07/05/17 at 18:00 Miscellaneous Information (Pending Santyl Order For Wound Care) This patient francisco... PRN PRN XX WOUND CARE; Start 07/06/17 at 11:00 Miscellaneous Information (*Rx Drug Level Order Reminder*) 1 ONCE ONCE XX ; Start 07/07/17 at 13:00; Stop 07/07/17 at 13:01 JAVIER CROUCH Jul 06, 2017 17:27
[2017-07-06] MEDS: DABIGATRAN 150 MG CAP PO SCH (20:27)
[2017-07-06] MEDS: ATORVASTATIN 20 MG TAB PO SCH (20:27)
[2017-07-06] MEDS: CEFTRIAXONE 1 GM/50 ML (PMX) 50 ML IVPB SCH (23:07)
[2017-07-07] VITALS (11 sets, daily range): BP systolic 110–122; BP diastolic 57–65; PULSE 95–125; RESP 18–21
[2017-07-07] MEDS: DILTIAZEM 60 MG TAB PO SCH ×2 (00:08→06:27)
[2017-07-07] MEDS: IPRATROPIUM (NEB) 0.5 MG/2.5 ML AMP HHN PRN ×6 (01:48→20:32)
[2017-07-07] MEDS: LEVOTHYROXINE 25 MCG TAB PO SCH (06:26)
[2017-07-07] MEDS: PANTOPRAZOLE (EC) 40 MG TAB PO SCH (06:26)
[2017-07-07] MEDS: FUROSEMIDE 40 MG TAB PO SCH (06:27)
[2017-07-07 06:58] LABS: ABNORMAL IP MESSAGE 1; BASOPHILS % 0.4 % (0.0-2.0); EOSINOPHILS # 0.1 10^3/ul (0.0-0.5); EOSINOPHILS % 1.2 % (0.0-7.0); HEMATOCRIT 33.6 % (42.0-52.0); HEMOGLOBIN 10.5 g/dl (14.0-18.0); LYMPHOCYTES # 1.2 10^3/ul (0.8-2.9); LYMPHOCYTES % 11.8 % (15.0-51.0); MEAN CORPUSCULAR HEMOGLOBIN 19.3 pg (29.0-33.0); MEAN CORPUSCULAR HGB CONC 31.3 g/dl (32.0-37.0); MEAN CORPUSCULAR VOLUME 61.7 fl (82.0-101.0); MEAN PLATELET VOLUME 10.4 fl (7.4-10.4); MONOCYTE # 1.2 10^3/ul (0.3-0.9); MONOCYTES % 11.7 % (0.0-11.0); NEUTROPHILS % 74.6 % (39.0-77.0); PLATELET COUNT 246 10^3/UL (140-415); POSITIVE DIFF @See below; RED BLOOD COUNT 5.45 10^6/ul (4.70-6.10); RED CELL DISTRIBUTION WIDTH 18.2 % (11.5-14.5); WHITE BLOOD COUNT 10.1 10^3/ul (4.8-10.8)
[2017-07-07 07:34] LABS: CALCIUM 7.7 mg/dl (8.4-10.2); CREATININE 0.76 mg/dl (0.61-1.24); POTASSIUM 3.5 mmol/L (3.5-5.1)
[2017-07-07] MEDS: FINASTERIDE 5 MG TAB PO SCH (08:18)
[2017-07-07] MEDS: DABIGATRAN 150 MG CAP PO SCH ×2 (08:18→20:39)
[2017-07-07] MEDS: TERAZOSIN 2 MG CAP PO SCH ×2 (08:18→20:40)
[2017-07-07] MEDS ORDERED: POTASSIUM CHLORIDE (SR) 20 MEQ TAB PO STA (09:14)
[2017-07-07] MEDS ORDERED: DILTIAZEM 25 MG INJ IV PRN (09:30)
[2017-07-07] MEDS: DILTIAZEM (CD) 240 MG CAP PO SCH (10:39)
--- NOTE | 2017-07-07 11:14 | PN ---
Date/Time of Note Date/Time of Note DATE: 07/07/17 TIME: 11:07 Assessment/Plan VTE Prophylaxis VTE Prophylaxis Intervention: other (Pradaxa) Lines/Catheters [facility] Saline Lock Urinary Cath still in place: No Assessment/Plan Assessment/Plan 86-year-old male; 1. Respiratory distress, hypoxemia, known lung mass which seems to have progressed with endobronchial invasion based on CAT scan, possible pneumonia with mucous plugging. Also with emphysematous changes on CAT scan agree with IV antibiotics started emergency department. Will discontinue vancomycin, patient to start Levaquin for postobstructive pneumonia but also with a urinary tract infection based on urine culture. Appreciate recommendation from pulmonary, home oxygen will be arranged at discharge. Currently on Cardizem for rate control of his chronic atrial fibrillation, also back on Pradaxa for stroke prophylaxis. Continue diuresis with Lasix, patient tolerating well. 2. Atrial fibrillation, chronic, status post rapid ventricular response. We will switch to Cardizem CD 240 mg p.o. daily with possibility to increase to 360 mg in the next 24 hours if need further heart rate control. Patient reports that he had some issues with digoxin and had to be switched off of it in the past. Continue Pradaxa. 3. Hypertension: Continue current medications 4. BPH: Continue current medications 5. Chronic bilateral lower extremities lymphedema, likely exacerbated by volume overload and possible cardiomyopathy in setting of atrial fibrillation, continue Lasix, monitor renal function and electrolytes. 6. Hypothyroidism: Continue Synthroid, TFTs within normal. Prophylaxis: Protonix for GI prophylaxis, on Pradaxa already. Disposition: Diuresis, heart rate control, home oxygen and nebulizer machine at discharge, patient declining any further diagnostic studies when he comes to his lung mass, no biopsy. Discharge planning for if patient remains stable and oxygen requirement below 5 L [place] Subjective 24 Hr Interval Summary Free Text/Dictation Patient remained stable, he is on 4-5 L nasal cannula currently, he feels much better however, will switch him to oral antibiotics, adjust his Lasix and discharge planning in the next 24 hours for home with home oxygen and home nebulizer machine Exam/Review of Systems Vital Signs Vitals Vital Signs Date Time Temp Pulse Resp B/P Pulse Ox O2 Delivery O2 Flow Rate FiO2 07/07/17 08:54 102 20 93 5.0 07/07/17 07:08 98.6 122/63 07/06/17 20:00 Nasal Cannula Intake and Output 07/06/17 07/06/17 07/07/17 15:00 23:00 07:00 Intake Total 480 ml 300 ml Output Total 720 ml 900 ml Balance -240 ml -600 ml Exam Constitutional: alert, frail, oriented Neck: non-tender, supple Respiratory: diminished breath sounds (Left upper lobe), normal air movement ( Supplemental O2 required) Cardiovascular: irregular rhythm (Atrial fibrillation, heart rate 90s-100) Gastrointestinal: non-tender, soft Musculoskeletal: nl extremities to inspection Extremities: normal pulses, other (No clubbing or cyanosis, +1 edema) 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, nl mental status, nl speech, nl strength ( Baseline) Results Result Diagram: 07/07/17 0600 07/07/17 0600 Results 24 hrs Laboratory Tests Test 07/07/17 06:00 White Blood Count 10.1 Red Blood Count 5.45 Hemoglobin 10.5 L Hematocrit 33.6 L Mean Corpuscular Volume 61.7 L Mean Corpuscular Hemoglobin 19.3 L Mean Corpuscular Hemoglobin Concent 31.3 L Red Cell Distribution Width 18.2 H Platelet Count 246 Mean Platelet Volume 10.4 Neutrophils % 74.6 Lymphocytes % 11.8 L Monocytes % 11.7 H Eosinophils % 1.2 Basophils % 0.4 Nucleated Red Blood Cells % 0.0 Neutrophils # (Manual) 7.6 H Lymphocytes # 1.2 Monocytes # 1.2 H Eosinophils # 0.1 Basophils # 0.0 Nucleated Red Blood Cells # 0.0 Sodium Level 139 Potassium Level 3.5 Chloride Level 91 L Carbon Dioxide Level 38 H Anion Gap 14 Blood Urea Nitrogen 16 Creatinine 0.76 Glucose Level 84 Calcium Level 7.7 L Medications Medications Current Medications Atorvastatin Calcium (Lipitor) 20 mg QHS PO Last administered on 07/06/17 20: 27; Admin Dose 20 MG; Start 07/04/17 at 21:00 Finasteride (Proscar) 5 mg DAILY PO Last administered on 07/07/17 08:18; Admin Dose 5 MG; Start 07/04/17 at 09:00 Terazosin HCl (Hytrin) 2 mg BID PO Last administered on 07/07/17 08:18; Admin Dose 2 MG; Start 07/04/17 at 09:00 Ondansetron HCl (Zofran Inj) 4 mg Q6H PRN IV NAUSEA AND/OR VOMITING; Start at 02:30 Nitroglycerin (Nitroglycerin (Sl Tab) 0.4 Mg) 1 tab Q5M PRN SL CHEST PAIN; Start 07/04/17 at 02:30 Acetaminophen (Tylenol Tab) 650 mg Q6H PRN PO PAIN LEVEL 1-3 OR FEVER; Start at 02:30 Acetaminophen/ Hydrocodone Bitart ([place] (5/325)) 1 tab Q6H PRN PO PAIN LEVEL 4 -6 Last administered on 07/05/17 23:50; Admin Dose 1 TAB; Start 07/04/17 at 02: 30 Acetaminophen/ Hydrocodone Bitart ([place] (5/325)) 2 tab Q6H PRN PO PAIN LEVEL 7 -10; Start 07/04/17 at 02:30 Morphine Sulfate (morphine) 2 mg Q4H PRN IV PAIN LEVEL 7-10; Start 07/04/17 at 02:30 Docusate Sodium (Colace) 100 mg Q12H PRN PO CONSTIPATION Last administered on 20:27; Admin Dose 100 MG; Start 07/04/17 at 02:30 Magnesium Hydroxide (Milk Of Mag) 30 ml DAILY PRN PO CONSTIPATION; Start at 02:30 Bisacodyl (Dulcolax) 5 mg DAILY PRN PO CONSTIPATION; Start 07/04/17 at 02:30 Pantoprazole (Protonix Tab) 40 mg DAILY@06 PO Last administered on 07/07/17 06 :26; Admin Dose 40 MG; Start 07/04/17 at 06:00 Miscellaneous Information (Pending Santyl Order For Wound Care) This patient francisco... PRN PRN XX WOUND CARE; Start 07/06/17 at 11:00 Dabigatran (PRADaxa) 150 mg BID PO Last administered on 07/07/17 08:18; Admin Dose 150 MG; Start 07/06/17 at 21:00 Levofloxacin (Levaquin) 750 mg DAILY PO ; Start 07/07/17 at 09:30 Diltiazem HCl (Cardizem Cd) 240 mg DAILY PO Last administered on 07/07/17 10: 39; Admin Dose 240 MG; Start 07/07/17 at 09:30 Diltiazem HCl (Cardizem Iv) 10 mg Q6 PRN IV PALPITATION; Start 07/07/17 at 09: 30 LINDA MASON Jul 07, 2017 11:14
--- NOTE | 2017-07-07 11:37 | CONS ---
Date/Time of Note Date/Time of Note DATE: 07/07/17 TIME: 11:37 Consult Date/Type/Reason Admit Date/Time Jul 04, 2017 at 01:45 Type of Consultation: Pulmonary Subjective Comfortable no new events. Objective Vital Signs Date Time Temp Pulse Resp B/P Pulse Ox O2 Delivery O2 Flow Rate FiO2 07/07/17 11:09 98.2 99 18 118/59 91 07/07/17 08:54 5.0 07/06/17 20:00 Nasal Cannula Intake and Output 07/06/17 07/06/17 07/07/17 14:59 22:59 06:59 Intake Total 480 ml 300 ml Output Total 720 ml 900 ml Balance -240 ml -600 ml Exam GENERAL: VITAL SIGNS: per chart NECK: Supple. No JVD or lymphadenopathy. CARDIAC EXAM: S1, S2. No added sounds or murmurs. CHEST: clear bilaterally, No added sounds, rales or wheezes ABDOMEN: Soft, nontender. No guarding or rebound. EXTREMITIES: No cyanosis, clubbing or edema. NEUROLOGIC: Generalized weakness. No focal deficits. Results/Medications Result Diagram: 07/07/17 0600 07/07/17 0600 Results 24 hrs Laboratory Tests Test 07/07/17 06:00 White Blood Count 10.1 Red Blood Count 5.45 Hemoglobin 10.5 L Hematocrit 33.6 L Mean Corpuscular Volume 61.7 L Mean Corpuscular Hemoglobin 19.3 L Mean Corpuscular Hemoglobin Concent 31.3 L Red Cell Distribution Width 18.2 H Platelet Count 246 Mean Platelet Volume 10.4 Neutrophils % 74.6 Lymphocytes % 11.8 L Monocytes % 11.7 H Eosinophils % 1.2 Basophils % 0.4 Nucleated Red Blood Cells % 0.0 Neutrophils # (Manual) 7.6 H Lymphocytes # 1.2 Monocytes # 1.2 H Eosinophils # 0.1 Basophils # 0.0 Nucleated Red Blood Cells # 0.0 Sodium Level 139 Potassium Level 3.5 Chloride Level 91 L Carbon Dioxide Level 38 H Anion Gap 14 Blood Urea Nitrogen 16 Creatinine 0.76 Glucose Level 84 Calcium Level 7.7 L Medications Current Medications Atorvastatin Calcium (Lipitor) 20 mg QHS PO Last administered on 07/06/17t 20: 27; Admin Dose 20 MG; Start 07/04/17 at 21:00 Finasteride (Proscar) 5 mg DAILY PO Last administered on 07/07/17 08:18; Admin Dose 5 MG; Start 07/04/17 at 09:00 Terazosin HCl (Hytrin) 2 mg BID PO Last administered on 07/07/17 08:18; Admin Dose 2 MG; Start 07/04/17 at 09:00 Ondansetron HCl (Zofran Inj) 4 mg Q6H PRN IV NAUSEA AND/OR VOMITING; Start at 02:30 Nitroglycerin (Nitroglycerin (Sl Tab) 0.4 Mg) 1 tab Q5M PRN SL CHEST PAIN; Start 07/04/17 at 02:30 Acetaminophen (Tylenol Tab) 650 mg Q6H PRN PO PAIN LEVEL 1-3 OR FEVER; Start at 02:30 Acetaminophen/ Hydrocodone Bitart ([place] (5/325)) 1 tab Q6H PRN PO PAIN LEVEL 4 -6 Last administered on 07/05/17 23:50; Admin Dose 1 TAB; Start 07/04/17 at 02: 30 Acetaminophen/ Hydrocodone Bitart ([place] (5/325)) 2 tab Q6H PRN PO PAIN LEVEL 7 -10; Start 07/04/17 at 02:30 Morphine Sulfate (morphine) 2 mg Q4H PRN IV PAIN LEVEL 7-10; Start 07/04/17 at 02:30 Docusate Sodium (Colace) 100 mg Q12H PRN PO CONSTIPATION Last administered on 20:27; Admin Dose 100 MG; Start 07/04/17 at 02:30 Magnesium Hydroxide (Milk Of Mag) 30 ml DAILY PRN PO CONSTIPATION; Start at 02:30 Bisacodyl (Dulcolax) 5 mg DAILY PRN PO CONSTIPATION; Start 07/04/17 at 02:30 Pantoprazole (Protonix Tab) 40 mg DAILY@06 PO Last administered on 07/07/17 06 :26; Admin Dose 40 MG; Start 07/04/17 at 06:00 Miscellaneous Information (Pending Santyl Order For Wound Care) This patient francisco... PRN PRN XX WOUND CARE; Start 07/06/17 at 11:00 Dabigatran (PRADaxa) 150 mg BID PO Last administered on 07/07/17 08:18; Admin Dose 150 MG; Start 07/06/17 at 21:00 Levofloxacin (Levaquin) 750 mg DAILY PO ; Start 07/07/17 at 09:30 Diltiazem HCl (Cardizem Cd) 240 mg DAILY PO Last administered on 07/07/17t 10: 39; Admin Dose 240 MG; Start 07/07/17 at 09:30 Diltiazem HCl (Cardizem Iv) 10 mg Q6 PRN IV PALPITATION; Start 07/07/17 at 09: 30 Assessment/Plan Chief Complaint/Hosp Course Assessment 1. Likely advanced primary lung cancer. 2. Underlying COPD Plan 1. Patient continues to decline biopsy and further workup. I think this is entirely appropriate. 2. Consider discharge With supplemental O2 and antibiotics for postobstructive pneumonia 3. Palliative care consult may be appropriate Agree with discharge tomorrow with supplemental O2. Problems: RUDDY DEY MD, [facility] Jul 07, 2017 11:37
[2017-07-07] MEDS: LEVOFLOXACIN 750 MG TABLET PO SCH (12:22)
[2017-07-07] MEDS: FUROSEMIDE 20 MG TAB PO SCH (17:52)
[2017-07-07] MEDS: ATORVASTATIN 20 MG TAB PO SCH (20:39)
[2017-07-08] VITALS (12 sets, daily range): BP systolic 109–130; BP diastolic 58–76; PULSE 80–119; RESP 16–18
[2017-07-08] MEDS: IPRATROPIUM (NEB) 0.5 MG/2.5 ML AMP HHN PRN ×4 (01:58→23:12)
[2017-07-08] MEDS: LEVOTHYROXINE 25 MCG TAB PO SCH (05:59)
[2017-07-08] MEDS: PANTOPRAZOLE (EC) 40 MG TAB PO SCH (05:59)
[2017-07-08] MEDS: FUROSEMIDE 20 MG TAB PO SCH ×2 (05:59→17:22)
[2017-07-08 07:29] LABS: ABNORMAL IP MESSAGE 1; BASOPHILS % 0.3 % (0.0-2.0); EOSINOPHILS # 0.1 10^3/ul (0.0-0.5); EOSINOPHILS % 1.1 % (0.0-7.0); HEMATOCRIT 35.1 % (42.0-52.0); HEMOGLOBIN 10.7 g/dl (14.0-18.0); LYMPHOCYTES # 1.1 10^3/ul (0.8-2.9); MEAN CORPUSCULAR HGB CONC 30.5 g/dl (32.0-37.0); MEAN CORPUSCULAR VOLUME 62.2 fl (82.0-101.0); MEAN PLATELET VOLUME 9.9 fl (7.4-10.4); MONOCYTE # 1.3 10^3/ul (0.3-0.9); MONOCYTES % 12.6 % (0.0-11.0); NEUTROPHILS % 74.6 % (39.0-77.0); PLATELET COUNT 222 10^3/UL (140-415); POSITIVE DIFF @See below; RED BLOOD COUNT 5.64 10^6/ul (4.70-6.10); RED CELL DISTRIBUTION WIDTH 18.2 % (11.5-14.5); WHITE BLOOD COUNT 10.3 10^3/ul (4.8-10.8)
[2017-07-08 07:55] LABS: CALCIUM 8.1 mg/dl (8.4-10.2); CREATININE 0.76 mg/dl (0.61-1.24)
[2017-07-08 07:57] LABS: PHOSPHORUS 3.2 mg/dl (2.5-4.9)
[2017-07-08] MEDS: LEVOFLOXACIN 750 MG TABLET PO SCH (08:28)
[2017-07-08] MEDS: TERAZOSIN 2 MG CAP PO SCH ×2 (08:28→21:36)
[2017-07-08] MEDS: DABIGATRAN 150 MG CAP PO SCH ×2 (08:28→21:37)
[2017-07-08] MEDS: FINASTERIDE 5 MG TAB PO SCH (08:28)
[2017-07-08] MEDS: DILTIAZEM (CD) 240 MG CAP PO SCH (08:29)
--- NOTE | 2017-07-08 12:33 | CONS ---
Date/Time of Note Date/Time of Note DATE: 07/08/17 TIME: 12:33 Consult Date/Type/Reason Admit Date/Time Jul 04, 2017 at 01:45 Type of Consultation: Pulmonary Subjective Patient comfortable no new events. Objective Vital Signs Date Time Temp Pulse Resp B/P Pulse Ox O2 Delivery O2 Flow Rate FiO2 07/08/17 11:14 97.8 105 16 112/76 95 07/08/17 08:24 5.0 07/08/17 08:24 Nasal Cannula Intake and Output 07/07/17 07/07/17 07/08/17 15:00 23:00 07:00 Intake Total 500 ml 700 ml Output Total 800 ml 850 ml Balance -300 ml -150 ml Exam GENERAL: VITAL SIGNS: per chart NECK: Supple. No JVD or lymphadenopathy. CARDIAC EXAM: S1, S2. No added sounds or murmurs. CHEST: clear bilaterally, No added sounds, rales or wheezes ABDOMEN: Soft, nontender. No guarding or rebound. EXTREMITIES: No cyanosis, clubbing or edema. NEUROLOGIC: Generalized weakness. No focal deficits. Results/Medications Result Diagram: 07/08/17 0649 07/08/17 0649 Results 24 hrs Laboratory Tests Test 07/08/17 06:49 White Blood Count 10.3 Red Blood Count 5.64 Hemoglobin 10.7 L Hematocrit 35.1 L Mean Corpuscular Volume 62.2 L Mean Corpuscular Hemoglobin 19.0 L Mean Corpuscular Hemoglobin Concent 30.5 L Red Cell Distribution Width 18.2 H Platelet Count 222 Mean Platelet Volume 9.9 Neutrophils % 74.6 Lymphocytes % 11.0 L Monocytes % 12.6 H Eosinophils % 1.1 Basophils % 0.3 Nucleated Red Blood Cells % 0.0 Neutrophils # (Manual) 7.7 H Lymphocytes # 1.1 Monocytes # 1.3 H Eosinophils # 0.1 Basophils # 0.0 Nucleated Red Blood Cells # 0.0 Sodium Level 134 L Potassium Level 4.0 Chloride Level 91 L Carbon Dioxide Level 36 H Anion Gap 11 Blood Urea Nitrogen 15 Creatinine 0.76 Glucose Level 91 Calcium Level 8.1 L Phosphorus Level 3.2 Magnesium Level 2.0 Medications Current Medications Atorvastatin Calcium (Lipitor) 20 mg QHS PO Last administered on 07/07/17t 20: 39; Admin Dose 20 MG; Start 07/04/17 at 21:00 Finasteride (Proscar) 5 mg DAILY PO Last administered on 07/08/17 08:28; Admin Dose 5 MG; Start 07/04/17 at 09:00 Terazosin HCl (Hytrin) 2 mg BID PO Last administered on 07/08/17 08:28; Admin Dose 2 MG; Start 07/04/17 at 09:00 Ondansetron HCl (Zofran Inj) 4 mg Q6H PRN IV NAUSEA AND/OR VOMITING; Start at 02:30 Nitroglycerin (Nitroglycerin (Sl Tab) 0.4 Mg) 1 tab Q5M PRN SL CHEST PAIN; Start 07/04/17 at 02:30 Acetaminophen (Tylenol Tab) 650 mg Q6H PRN PO PAIN LEVEL 1-3 OR FEVER; Start at 02:30 Acetaminophen/ Hydrocodone Bitart ([place] (5/325)) 1 tab Q6H PRN PO PAIN LEVEL 4 -6 Last administered on 07/05/17 23:50; Admin Dose 1 TAB; Start 07/04/17 at 02: 30 Acetaminophen/ Hydrocodone Bitart ([place] (5/325)) 2 tab Q6H PRN PO PAIN LEVEL 7 -10; Start 07/04/17 at 02:30 Morphine Sulfate (morphine) 2 mg Q4H PRN IV PAIN LEVEL 7-10; Start 07/04/17 at 02:30 Docusate Sodium (Colace) 100 mg Q12H PRN PO CONSTIPATION Last administered on 20:27; Admin Dose 100 MG; Start 07/04/17 at 02:30 Magnesium Hydroxide (Milk Of Mag) 30 ml DAILY PRN PO CONSTIPATION; Start at 02:30 Bisacodyl (Dulcolax) 5 mg DAILY PRN PO CONSTIPATION; Start 07/04/17 at 02:30 Pantoprazole (Protonix Tab) 40 mg DAILY@06 PO Last administered on 07/08/17 05 :59; Admin Dose 40 MG; Start 07/04/17 at 06:00 Miscellaneous Information (Pending Santyl Order For Wound Care) This patient francisco... PRN PRN XX WOUND CARE; Start 07/06/17 at 11:00 Dabigatran (PRADaxa) 150 mg BID PO Last administered on 07/08/17 08:28; Admin Dose 150 MG; Start 07/06/17 at 21:00 Levofloxacin (Levaquin) 750 mg DAILY PO Last administered on 07/08/17 08:28; Admin Dose 750 MG; Start 07/07/17 at 09:30 Diltiazem HCl (Cardizem Cd) 240 mg DAILY PO Last administered on 07/08/17 08: 29; Admin Dose 240 MG; Start 07/07/17 at 09:30 Diltiazem HCl (Cardizem Iv) 10 mg Q6 PRN IV PALPITATION; Start 07/07/17 at 09: 30 Assessment/Plan Chief Complaint/Hosp Course Assessment 1. Likely advanced primary lung cancer. 2. Underlying COPD Plan 1. Patient continues to decline biopsy and further workup. I think this is entirely appropriate. 2. Consider discharge With supplemental O2 and antibiotics for postobstructive pneumonia 3. Palliative care consult may be appropriate Discharge planning. Problems: RUDDY DEY MD, [facility] Jul 08, 2017 12:33
--- NOTE | 2017-07-08 12:38 | PN ---
Date/Time of Note Date/Time of Note DATE: 07/08/17 TIME: 12:03 Assessment/Plan VTE Prophylaxis VTE Prophylaxis Intervention: SCD's Lines/Catheters IV [facility]from [facility] Saline Lock Urinary Cath still in place: No Assessment/Plan Assessment/Plan 86-year-old male; 1. Respiratory distress, hypoxemia, known lung mass which seems to have progressed with endobronchial invasion based on CAT scan, possible pneumonia with mucous plugging. Also with emphysematous changes on CAT scan agree with IV antibiotics started emergency department. Patient on Levaquin for postobstructive pneumonia but also with a urinary tract infection based on urine culture. Appreciate recommendation from pulmonary, home oxygen will be arranged at discharge. Currently on Cardizem for rate control of his chronic atrial fibrillation, also back on Pradaxa for stroke prophylaxis. Continue diuresis with Lasix, patient tolerating well. 2. Atrial fibrillation, chronic, status post rapid ventricular response. Continue Cardizem CD 240 mg p.o. daily with possibility to increase to 360 mg in the next 24 hours if need further heart rate control. Patient reports that he had some issues with digoxin and had to be switched off of it in the past. Continue Pradaxa. 3. Hypertension: Continue current medications 4. BPH: Continue current medications 5. Chronic bilateral lower extremities lymphedema, likely exacerbated by volume overload and possible cardiomyopathy in setting of atrial fibrillation, continue Lasix, monitor renal function and electrolytes. 6. Hypothyroidism: Continue Synthroid, TFTs within normal. Prophylaxis: Protonix for GI prophylaxis, on Pradaxa already. Disposition: Diuresis, heart rate control, home oxygen and nebulizer machine at discharge, patient declining any further diagnostic studies when he comes to his lung mass, no biopsy. Discharge planning for potentially [facility] facility, if patient remains stable and oxygen requirement below 5 L NC Subjective 24 Hr Interval Summary Free Text/Dictation Patient still requiring up to 5 L nasal cannula No fevers, chills. I have conveyed to him that it would be preferable to go to a [facility] facility as he needs more assistance for now, he is insistent on going home but willing to consider [facility] facility. Case management consult will be ordered. Exam/Review of Systems Vital Signs Vitals Vital Signs Date Time Temp Pulse Resp B/P Pulse Ox O2 Delivery O2 Flow Rate FiO2 07/08/17 11:14 97.8 105 16 112/76 95 07/08/17 08:24 5.0 07/08/17 08:24 Nasal Cannula Intake and Output 07/07/17 07/07/17 07/08/17 15:00 23:00 07:00 Intake Total 500 ml 700 ml Output Total 800 ml 850 ml Balance -300 ml -150 ml Exam Constitutional: alert, oriented, well developed Cardiovascular: irregular rhythm (Atrial fibrillation) Gastrointestinal: non-tender, soft Musculoskeletal: nl extremities to inspection Extremities: edema (Still has a +2-3 lymphedema chronic), normal pulses, other (No clubbing or cyanosis) 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, nl mental status, nl speech, other ( Generalized weakness) Results Result Diagram: 07/08/17 0649 07/08/17 0649 Results 24 hrs Laboratory Tests Test 07/08/17 06:49 White Blood Count 10.3 Red Blood Count 5.64 Hemoglobin 10.7 L Hematocrit 35.1 L Mean Corpuscular Volume 62.2 L Mean Corpuscular Hemoglobin 19.0 L Mean Corpuscular Hemoglobin Concent 30.5 L Red Cell Distribution Width 18.2 H Platelet Count 222 Mean Platelet Volume 9.9 Neutrophils % 74.6 Lymphocytes % 11.0 L Monocytes % 12.6 H Eosinophils % 1.1 Basophils % 0.3 Nucleated Red Blood Cells % 0.0 Neutrophils # (Manual) 7.7 H Lymphocytes # 1.1 Monocytes # 1.3 H Eosinophils # 0.1 Basophils # 0.0 Nucleated Red Blood Cells # 0.0 Sodium Level 134 L Potassium Level 4.0 Chloride Level 91 L Carbon Dioxide Level 36 H Anion Gap 11 Blood Urea Nitrogen 15 Creatinine 0.76 Glucose Level 91 Calcium Level 8.1 L Phosphorus Level 3.2 Magnesium Level 2.0 Medications Medications Current Medications Atorvastatin Calcium (Lipitor) 20 mg QHS PO Last administered on 07/07/17 20: 39; Admin Dose 20 MG; Start 07/04/17 at 21:00 Finasteride (Proscar) 5 mg DAILY PO Last administered on 07/08/17 08:28; Admin Dose 5 MG; Start 07/04/17 at 09:00 Terazosin HCl (Hytrin) 2 mg BID PO Last administered on 07/08/17 08:28; Admin Dose 2 MG; Start 07/04/17 at 09:00 Ondansetron HCl (Zofran Inj) 4 mg Q6H PRN IV NAUSEA AND/OR VOMITING; Start at 02:30 Nitroglycerin (Nitroglycerin (Sl Tab) 0.4 Mg) 1 tab Q5M PRN SL CHEST PAIN; Start 07/04/17 at 02:30 Acetaminophen (Tylenol Tab) 650 mg Q6H PRN PO PAIN LEVEL 1-3 OR FEVER; Start at 02:30 Acetaminophen/ Hydrocodone Bitart ([place] (5/325)) 1 tab Q6H PRN PO PAIN LEVEL 4 -6 Last administered on 07/05/17 23:50; Admin Dose 1 TAB; Start 07/04/17 at 02: 30 Acetaminophen/ Hydrocodone Bitart ([place] (5/325)) 2 tab Q6H PRN PO PAIN LEVEL 7 -10; Start 07/04/17 at 02:30 Morphine Sulfate (morphine) 2 mg Q4H PRN IV PAIN LEVEL 7-10; Start 07/04/17 at 02:30 Docusate Sodium (Colace) 100 mg Q12H PRN PO CONSTIPATION Last administered on 20:27; Admin Dose 100 MG; Start 07/04/17 at 02:30 Magnesium Hydroxide (Milk Of Mag) 30 ml DAILY PRN PO CONSTIPATION; Start at 02:30 Bisacodyl (Dulcolax) 5 mg DAILY PRN PO CONSTIPATION; Start 07/04/17 at 02:30 Pantoprazole (Protonix Tab) 40 mg DAILY@06 PO Last administered on 07/08/17 05 :59; Admin Dose 40 MG; Start 07/04/17 at 06:00 Miscellaneous Information (Pending Santyl Order For Wound Care) This patient francisco... PRN PRN XX WOUND CARE; Start 07/06/17 at 11:00 Dabigatran (PRADaxa) 150 mg BID PO Last administered on 07/08/17 08:28; Admin Dose 150 MG; Start 07/06/17 at 21:00 Levofloxacin (Levaquin) 750 mg DAILY PO Last administered on 07/08/17 08:28; Admin Dose 750 MG; Start 07/07/17 at 09:30 Diltiazem HCl (Cardizem Cd) 240 mg DAILY PO Last administered on 07/08/17t 08: 29; Admin Dose 240 MG; Start 07/07/17 at 09:30 Diltiazem HCl (Cardizem Iv) 10 mg Q6 PRN IV PALPITATION; Start 07/07/17 at 09: 30 LINDA MASON Jul 08, 2017 12:13
[2017-07-08] MEDS: ATORVASTATIN 20 MG TAB PO SCH (21:37)
[2017-07-09] VITALS (13 sets, daily range): BP systolic 104–125; BP diastolic 56–61; PULSE 90–132; RESP 18
[2017-07-09] MEDS ORDERED: AL HYDROX/MG HYDROX/SIMETH 30 ML CUP PO PRN
[2017-07-09] MEDS: PANTOPRAZOLE (EC) 40 MG TAB PO SCH (06:27)
[2017-07-09] MEDS: LEVOTHYROXINE 25 MCG TAB PO SCH (06:27)
[2017-07-09] MEDS: FUROSEMIDE 20 MG TAB PO SCH ×2 (06:27→17:03)
[2017-07-09] MEDS: DABIGATRAN 150 MG CAP PO SCH ×2 (08:31→21:54)
[2017-07-09] MEDS: FINASTERIDE 5 MG TAB PO SCH (08:31)
[2017-07-09] MEDS: TERAZOSIN 2 MG CAP PO SCH ×2 (08:31→21:54)
[2017-07-09] MEDS: DILTIAZEM (CD) 240 MG CAP PO SCH (08:32)
[2017-07-09] MEDS: LEVOFLOXACIN 750 MG TABLET PO SCH (08:32)
--- NOTE | 2017-07-09 12:09 | CONS ---
Date/Time of Note Date/Time of Note DATE: 07/09/17 TIME: 12:08 Consult Date/Type/Reason Admit Date/Time Jul 04, 2017 at 01:45 Type of Consultation: Pulmonary Subjective Patient remains comfortable this morning. Objective Vital Signs Date Time Temp Pulse Resp B/P Pulse Ox O2 Delivery O2 Flow Rate FiO2 07/09/17 11:51 98.3 99 18 112/56 95 07/09/17 07:27 Nasal Cannula 4.0 Intake and Output 07/08/17 07/08/17 07/09/17 14:59 22:59 06:59 Intake Total 1080 ml Balance 1080 ml Exam GENERAL: Elderly gentleman comfortable at rest no acute distress VITAL SIGNS: per chart NECK: Supple. No JVD or lymphadenopathy. CARDIAC EXAM: S1, S2. No added sounds or murmurs. CHEST: clear bilaterally, No added sounds, rales or wheezes ABDOMEN: Soft, nontender. No guarding or rebound. EXTREMITIES: No cyanosis, clubbing or edema. NEUROLOGIC: Generalized weakness. No focal deficits. Results/Medications Result Diagram: 07/08/1749 07/08/17 0649 Medications Current Medications Atorvastatin Calcium (Lipitor) 20 mg QHS PO Last administered on 07/08/17 21: 37; Admin Dose 20 MG; Start 07/04/17 at 21:00 Finasteride (Proscar) 5 mg DAILY PO Last administered on 07/09/17 08:31; Admin Dose 5 MG; Start 07/04/17 at 09:00 Terazosin HCl (Hytrin) 2 mg BID PO Last administered on 07/09/17 08:31; Admin Dose 2 MG; Start 07/04/17 at 09:00 Ondansetron HCl (Zofran Inj) 4 mg Q6H PRN IV NAUSEA AND/OR VOMITING; Start at 02:30 Nitroglycerin (Nitroglycerin (Sl Tab) 0.4 Mg) 1 tab Q5M PRN SL CHEST PAIN; Start 07/04/17 at 02:30 Acetaminophen (Tylenol Tab) 650 mg Q6H PRN PO PAIN LEVEL 1-3 OR FEVER; Start at 02:30 Acetaminophen/ Hydrocodone Bitart ([place] (5/325)) 1 tab Q6H PRN PO PAIN LEVEL 4 -6 Last administered on 07/05/17 23:50; Admin Dose 1 TAB; Start 07/04/17 at 02: 30 Acetaminophen/ Hydrocodone Bitart ([place] (5/325)) 2 tab Q6H PRN PO PAIN LEVEL 7 -10; Start 07/04/17 at 02:30 Morphine Sulfate (morphine) 2 mg Q4H PRN IV PAIN LEVEL 7-10; Start 07/04/17 at 02:30 Docusate Sodium (Colace) 100 mg Q12H PRN PO CONSTIPATION Last administered on 20:27; Admin Dose 100 MG; Start 07/04/17 at 02:30 Magnesium Hydroxide (Milk Of Mag) 30 ml DAILY PRN PO CONSTIPATION; Start at 02:30 Bisacodyl (Dulcolax) 5 mg DAILY PRN PO CONSTIPATION; Start 07/04/17 at 02:30 Pantoprazole (Protonix Tab) 40 mg DAILY@06 PO Last administered on 07/09/17 06 :27; Admin Dose 40 MG; Start 07/04/17 at 06:00 Miscellaneous Information (Pending Santyl Order For Wound Care) This patient francisco... PRN PRN XX WOUND CARE; Start 07/06/17 at 11:00 Dabigatran (PRADaxa) 150 mg BID PO Last administered on 07/09/17 08:31; Admin Dose 150 MG; Start 07/06/17 at 21:00 Levofloxacin (Levaquin) 750 mg DAILY PO Last administered on 07/09/17 08:32; Admin Dose 750 MG; Start 07/07/17 at 09:30 Diltiazem HCl (Cardizem Cd) 240 mg DAILY PO Last administered on 07/09/17 08: 32; Admin Dose 240 MG; Start 07/07/17 at 09:30 Diltiazem HCl (Cardizem Iv) 10 mg Q6 PRN IV PALPITATION; Start 07/07/17 at 09: 30 Al Hydrox/Mg Hydrox/Simethicone (Mag-Al Plus) 30 ml Q6H PRN PO GASTROINTESTINAL UPSET Last administered on 07/09/17 00:41; Admin Dose 30 ML; Start 07/09/17 at 00:00 Assessment/Plan Chief Complaint/Hosp Course Assessment 1. Likely advanced primary lung cancer. 2. Underlying COPD Plan 1. Patient continues to decline biopsy and further workup. I think this is entirely appropriate. 2. Consider discharge With supplemental O2 and antibiotics for postobstructive pneumonia 3. Patient requesting to go home. Discharge planning. Problems: RUDDY DEY MD, [facility] Jul 09, 2017 12:09
--- NOTE | 2017-07-09 13:38 | PN ---
Date/Time of Note Date/Time of Note DATE: 07/09/17 TIME: 13:29 Assessment/Plan VTE Prophylaxis VTE Prophylaxis Intervention: SCD's Lines/Catheters IV Catheter Type (from Nrs): Saline Lock Urinary Cath still in place: No Assessment/Plan Assessment/Plan 86-year-old male; 1. Respiratory distress, hypoxemia, known lung mass which seems to have progressed with endobronchial invasion based on CAT scan, possible pneumonia with mucous plugging. Also with emphysematous changes on CAT scan agree with IV antibiotics started emergency department. Patient on Levaquin for postobstructive pneumonia but also with a urinary tract infection based on urine culture. Appreciate recommendation from pulmonary, home oxygen will be arranged at discharge. Currently on Cardizem for rate control of his chronic atrial fibrillation, also back on Pradaxa for stroke prophylaxis. Continue diuresis with Lasix, patient tolerating well. Chest x-ray pending today 2. Atrial fibrillation, chronic, status post rapid ventricular response. Continue Cardizem CD 240 mg p.o. daily with possibility to increase to 360 mg in the next 24 hours if need further heart rate control. Patient reports that he had some issues with digoxin and had to be switched off of it in the past. Continue Pradaxa. 3. Hypertension: Continue current medications 4. BPH: Continue current medications 5. Chronic bilateral lower extremities lymphedema, likely exacerbated by volume overload and possible cardiomyopathy in setting of atrial fibrillation, Continue Lasix, monitor renal function and electrolytes. 6. Hypothyroidism: Continue Synthroid, TFTs within normal. Prophylaxis: Protonix for GI prophylaxis, on Pradaxa already. Disposition: Diuresis, heart rate control, home oxygen and nebulizer machine at discharge, patient declining any further diagnostic studies when he comes to his lung mass, no biopsy. Discharge planning for home with home health tomorrow since patient has declined [facility] facility despite multiple discussions he is already requiring 5-6 L nasal cannula currently. Subjective 24 Hr Interval Summary Free Text/Dictation Patient currently requiring 4-6 L nasal cannula, he still have lower extremity edema. He however looks euvolemic intravascularly currently based on labs. He is refusing [facility] facility placement, therefore patient will be discharged home with home health in the next 24 hours. He however does have moderate to severe hypoxemia already requiring up to 6 L nasal cannula, he understands that he may not be able to thrive at home and at that point he is willing to go to a [facility] facility hopefully temporarily. Exam/Review of Systems Vital Signs Vitals Vital Signs Date Time Temp Pulse Resp B/P Pulse Ox O2 Delivery O2 Flow Rate FiO2 07/09/17 12:23 103 07/09/17 11:51 98.3 18 112/56 95 07/09/17 07:27 Nasal Cannula 4.0 Intake and Output 07/08/17 07/08/17 07/09/17 15:00 23:00 07:00 Intake Total 1080 ml Balance 1080 ml Exam Constitutional: alert, frail, oriented, other (Elderly ) Respiratory: diminished breath sounds (Primary left upper lobe), normal air movement, other (On 5-6 L nasal cannula) Cardiovascular: irregular rhythm (Atrial fibrillation) Gastrointestinal: non-tender, soft Musculoskeletal: nl extremities to inspection Extremities: normal pulses, other (Significant lower extremity edema, signs of chronic lymphedema) Neurological: REGISTERED MIDWIFE II-XII intact, nl mental status, nl speech, other ( Generalized weakness) Results Result Diagram: 07/08/17 0649 07/08/17 0649 Medications Medications Current Medications Atorvastatin Calcium (Lipitor) 20 mg QHS PO Last administered on 07/08/17 21: 37; Admin Dose 20 MG; Start 07/04/17 at 21:00 Finasteride (Proscar) 5 mg DAILY PO Last administered on 07/09/17 08:31; Admin Dose 5 MG; Start 07/04/17 at 09:00 Terazosin HCl (Hytrin) 2 mg BID PO Last administered on 07/09/17 08:31; Admin Dose 2 MG; Start 07/04/17 at 09:00 Ondansetron HCl (Zofran Inj) 4 mg Q6H PRN IV NAUSEA AND/OR VOMITING; Start at 02:30 Nitroglycerin (Nitroglycerin (Sl Tab) 0.4 Mg) 1 tab Q5M PRN SL CHEST PAIN; Start 07/04/17 at 02:30 Acetaminophen (Tylenol Tab) 650 mg Q6H PRN PO PAIN LEVEL 1-3 OR FEVER; Start at 02:30 Acetaminophen/ Hydrocodone Bitart ([place] (5/325)) 1 tab Q6H PRN PO PAIN LEVEL 4 -6 Last administered on 07/05/17 23:50; Admin Dose 1 TAB; Start 07/04/17 at 02: 30 Acetaminophen/ Hydrocodone Bitart ([place] (5/325)) 2 tab Q6H PRN PO PAIN LEVEL 7 -10; Start 07/04/17 at 02:30 Morphine Sulfate (morphine) 2 mg Q4H PRN IV PAIN LEVEL 7-10; Start 07/04/17 at 02:30 Docusate Sodium (Colace) 100 mg Q12H PRN PO CONSTIPATION Last administered on 20:27; Admin Dose 100 MG; Start 07/04/17 at 02:30 Magnesium Hydroxide (Milk Of Mag) 30 ml DAILY PRN PO CONSTIPATION; Start at 02:30 Bisacodyl (Dulcolax) 5 mg DAILY PRN PO CONSTIPATION; Start 07/04/17 at 02:30 Pantoprazole (Protonix Tab) 40 mg DAILY@06 PO Last administered on 07/09/17 06 :27; Admin Dose 40 MG; Start 07/04/17 at 06:00 [facility] This patient francisco... PRN PRN XX WOUND CARE; Start 07/06/17 at 11:00 Dabigatran (PRADaxa) 150 mg BID PO Last administered on 07/09/17 08:31; Admin Dose 150 MG; Start 07/06/17 at 21:00 Levofloxacin (Levaquin) 750 mg DAILY PO Last administered on 07/09/17 08:32; Admin Dose 750 MG; Start 07/07/17 at 09:30 Diltiazem HCl (Cardizem Cd) 240 mg DAILY PO Last administered on 07/09/17 08: 32; Admin Dose 240 MG; Start 07/07/17 at 09:30 Diltiazem HCl (Cardizem Iv) 10 mg Q6 PRN IV PALPITATION; Start 07/07/17 at 09: 30 Al Hydrox/Mg Hydrox/Simethicone (Mag-Al Plus) 30 ml Q6H PRN PO GASTROINTESTINAL UPSET Last administered on 07/09/17 00:41; Admin Dose 30 ML; Start 07/09/17 at 00:00 LINDA MASON Jul 09, 2017 13:38
--- NOTE | 2017-07-09 19:17 | RADRPT ---
PROCEDURE: XR Chest. CLINICAL INDICATION: Shortness of breath TECHNIQUE: Single AP portable chest. COMPARISON: H 11/10/2017 Chest x-ray FINDINGS: Stable cardiomegaly with large bilateral pleural effusions and vascular congestion. 7 cm left upper lobe opacity compatible with known lung mass. Atherosclerotic calcification of the aorta. No pneu mothorax. The osseous structures and soft tissues are unremarkable. IMPRESSION: 1. Stable cardiomegaly and vascular congestion with bilateral pleural effusions compatible with CHF. 2. 7 cm left upper lobe opacity compatible with known lung mass. RPTAT:AAJJ Hugo Aldrich Physician Date Time Electronically viewed and signed by Physician Mario on 07/09/2017 19:16 JOHN/
[2017-07-09] MEDS: ATORVASTATIN 20 MG TAB PO SCH (21:54)
[2017-07-09] MEDS: HYDROCODONE/APAP (5/325) TAB PO PRN (23:46)
[2017-07-10] VITALS (12 sets, daily range): BP systolic 110–132; BP diastolic 60–70; PULSE 74–99; RESP 16–20
[2017-07-10] MEDS: LEVOTHYROXINE 25 MCG TAB PO SCH (06:25)
[2017-07-10] MEDS: PANTOPRAZOLE (EC) 40 MG TAB PO SCH (06:25)
[2017-07-10] MEDS: FUROSEMIDE 20 MG TAB PO SCH ×2 (06:25→17:50)
[2017-07-10] MEDS: DABIGATRAN 150 MG CAP PO SCH ×2 (08:53→21:20)
[2017-07-10] MEDS: TERAZOSIN 2 MG CAP PO SCH ×2 (08:53→22:13)
[2017-07-10] MEDS: DILTIAZEM (CD) 240 MG CAP PO SCH (08:53)
[2017-07-10] MEDS: LEVOFLOXACIN 750 MG TABLET PO SCH (08:53)
[2017-07-10] MEDS: FINASTERIDE 5 MG TAB PO SCH (08:54)
--- NOTE | 2017-07-10 20:47 | PN ---
Date/Time of Note Date/Time of Note DATE: 07/10/17 TIME: 20:38 Assessment/Plan VTE Prophylaxis VTE Prophylaxis Intervention: SCD's Lines/Catheters [facility]from [facility] Saline Lock Central line still needed: No Urinary Cath still in place: No Assessment/Plan Assessment/Plan 1. Respiratory distress, hypoxemia, known lung mass which seems to have progressed with endobronchial invasion based on CAT scan, possible pneumonia with mucous plugging; continue Levaquin for postobstructive pneumonia urinary tract infection based on urine culture. Home oxygen will be arranged at discharge at 4 LPM. Currently on Cardizem for rate control of his chronic atrial fibrillation, also back on Pradaxa for stroke prophylaxis. Continue diuresis with Lasix, patient tolerating well. 2. Atrial fibrillation, chronic, stable. Continue Cardizem CD 240 mg p.o. daily with possibility to increase to 360 mg in the next 24 hours if need further heart rate control. Patient reports that he had some issues with digoxin and had to be switched off of it in the past. Continue Pradaxa. 3. Hypertension: Continue current medications 4. BPH: Continue current medications 5. Chronic bilateral lower extremities lymphedema, likely exacerbated by volume overload and possible cardiomyopathy in setting of atrial fibrillation, Continue Lasix, monitor renal function and electrolytes. 6. Hypothyroidism: Continue Synthroid, TFTs within normal. Prophylaxis: Protonix for GI prophylaxis, on Pradaxa already. Disposition: Diuresis, heart rate control, home oxygen and nebulizer machine at discharge, patient declining any further diagnostic studies when he comes to his lung mass, no biopsy. Discharge planning for home with home health tomorrow since patient has declined senior care facility despite multiple discussions he is already requiring 4-6 L nasal cannula currently. Subjective 24 Hr Interval Summary Free Text/Dictation The patient is feeling a little weaker. He also has some abdominal pain and constipation. Otherwise, no complaints. Exam/Review of Systems Vital Signs Vitals Vital Signs Date Time Temp Pulse Resp B/P Pulse Ox O2 Delivery O2 Flow Rate FiO2 07/10/17 20:19 98.1 72 18 130/70 96 07/10/17 18:30 4.0 07/10/17 08:23 Nasal Cannula Intake and Output 07/09/17 07/09/17 07/10/17 14:59 22:59 06:59 Intake Total 600 ml 250 ml Output Total 1100 ml 450 ml Balance -500 ml -200 ml Exam Constitutional: alert, oriented, well developed Psych: no complaints Head: normocephalic Eyes: nl conjunctiva ENMT: nl external ears & nose Neck: supple Respiratory: clear to auscultation Cardiovascular: regular rate and rhythm Gastrointestinal: bowel sounds, soft Results Result Diagram: 07/08/17 0649 07/08/17 0649 Medications Medications Current Medications Atorvastatin Calcium (Lipitor) 20 mg QHS PO Last administered on 07/09/17 21: 54; Admin Dose 20 MG; Start 07/04/17 at 21:00 Finasteride (Proscar) 5 mg DAILY PO Last administered on 07/10/17 08:54; Admin Dose 5 MG; Start 07/04/17 at 09:00 Terazosin HCl (Hytrin) 2 mg BID PO Last administered on 07/10/17 08:53; Admin Dose 2 MG; Start 07/04/17 at 09:00 Ondansetron HCl (Zofran Inj) 4 mg Q6H PRN IV NAUSEA AND/OR VOMITING; Start at 02:30 Nitroglycerin (Nitroglycerin (Sl Tab) 0.4 Mg) 1 tab Q5M PRN SL CHEST PAIN; Start 07/04/17 at 02:30 Acetaminophen (Tylenol Tab) 650 mg Q6H PRN PO PAIN LEVEL 1-3 OR FEVER; Start at 02:30 Acetaminophen/ Hydrocodone Bitart ([place] (5/325)) 1 tab Q6H PRN PO PAIN LEVEL 4 -6 Last administered on 07/09/17 23:46; Admin Dose 1 TAB; Start 07/04/17 at 02: 30 Acetaminophen/ Hydrocodone Bitart ([place] (5/325)) 2 tab Q6H PRN PO PAIN LEVEL 7 -10; Start 07/04/17 at 02:30 Morphine Sulfate (morphine) 2 mg Q4H PRN IV PAIN LEVEL 7-10; Start 07/04/17 at 02:30 Docusate Sodium (Colace) 100 mg Q12H PRN PO CONSTIPATION Last administered on 20:27; Admin Dose 100 MG; Start 07/04/17 at 02:30 Magnesium Hydroxide (Milk Of Mag) 30 ml DAILY PRN PO CONSTIPATION; Start at 02:30 Bisacodyl (Dulcolax) 5 mg DAILY PRN PO CONSTIPATION; Start 07/04/17 at 02:30 Pantoprazole (Protonix Tab) 40 mg DAILY@06 PO Last administered on 07/10/17 06 :25; Admin Dose 40 MG; Start 07/04/17 at 06:00 Miscellaneous Information (Pending [facility]yl Order For Wound Care) This patient francisco... PRN PRN XX WOUND CARE; Start 07/06/17 at 11:00 Dabigatran (PRADaxa) 150 mg BID PO Last administered on 07/10/17 08:53; Admin Dose 150 MG; Start 07/06/17 at 21:00 Levofloxacin (Levaquin) 750 mg DAILY PO Last administered on 07/10/17 08:53; Admin Dose 750 MG; Start 07/07/17 at 09:30 Diltiazem HCl (Cardizem Cd) 240 mg DAILY PO Last administered on 07/10/17 08: 53; Admin Dose 240 MG; Start 07/07/17 at 09:30 Diltiazem HCl (Cardizem Iv) 10 mg Q6 PRN IV PALPITATION; Start 07/07/17 at 09: 30 Al Hydrox/Mg Hydrox/Simethicone (Mag-Al Plus) 30 ml Q6H PRN PO GASTROINTESTINAL UPSET Last administered on 07/09/17 00:41; Admin Dose 30 ML; Start 07/09/17 at 00:00 ABHISHEK FERNANDO MD Jul 10, 2017 20:47
[2017-07-10] MEDS: ATORVASTATIN 20 MG TAB PO SCH (21:20)
[2017-07-10] MEDS: IPRATROPIUM (NEB) 0.5 MG/2.5 ML AMP HHN PRN (22:55)
[2017-07-11] VITALS (9 sets, daily range): BP systolic 115–128; BP diastolic 64–75; PULSE 87–100; RESP 16–20
[2017-07-11] MEDS: PANTOPRAZOLE (EC) 40 MG TAB PO SCH (05:15)
[2017-07-11] MEDS: LEVOTHYROXINE 25 MCG TAB PO SCH (05:16)
[2017-07-11] MEDS: FUROSEMIDE 20 MG TAB PO SCH (05:16)
[2017-07-11] MEDS: IPRATROPIUM (NEB) 0.5 MG/2.5 ML AMP HHN PRN (05:27)
[2017-07-11 06:53] LABS: ABNORMAL IP MESSAGE 1; BASOPHILS % 0.3 % (0.0-2.0); EOSINOPHILS # 0.1 10^3/ul (0.0-0.5); EOSINOPHILS % 1.5 % (0.0-7.0); HEMATOCRIT 36.3 % (42.0-52.0); HEMOGLOBIN 10.9 g/dl (14.0-18.0); LYMPHOCYTES % 10.3 % (15.0-51.0); MEAN CORPUSCULAR HEMOGLOBIN 18.9 pg (29.0-33.0); MEAN CORPUSCULAR VOLUME 62.9 fl (82.0-101.0); MONOCYTE # 1.2 10^3/ul (0.3-0.9); MONOCYTES % 12.6 % (0.0-11.0); NEUTROPHILS % 74.9 % (39.0-77.0); PLATELET COUNT 194 10^3/UL (140-415); POSITIVE DIFF @See below; RED BLOOD COUNT 5.77 10^6/ul (4.70-6.10); RED CELL DISTRIBUTION WIDTH 18.1 % (11.5-14.5); WHITE BLOOD COUNT 9.3 10^3/ul (4.8-10.8)
[2017-07-11 07:11] LABS: CALCIUM 8.2 mg/dl (8.4-10.2); CREATININE 0.69 mg/dl (0.61-1.24); POTASSIUM 3.7 mmol/L (3.5-5.1)
[2017-07-11] MEDS: LEVOFLOXACIN 750 MG TABLET PO SCH (08:40)
[2017-07-11] MEDS: DABIGATRAN 150 MG CAP PO SCH (08:40)
[2017-07-11] MEDS: FINASTERIDE 5 MG TAB PO SCH (08:41)
[2017-07-11] MEDS: TERAZOSIN 2 MG CAP PO SCH (08:41)
[2017-07-11] MEDS: DILTIAZEM (CD) 240 MG CAP PO SCH (08:42)
--- NOTE | 2017-07-11 11:21 | CONS ---
Date/Time of Note Date/Time of Note DATE: 07/11/17 TIME: 11:19 Assessment/Plan Assessment/Plan Additional Assessment/Plan Assessment recommendations; 1. Patient admitted for generalized weakness with likely underlying advanced lung malignancy, patient having refused any biopsy or any further evaluation. 2. Overall condition has improved. Patient to be discharged home or shelter today. Prognosis remains guarded. Consultation Date/Type/Reason Admit Date/Time Jul 04, 2017 at 01:45 Initial Consult Date Type of Consultation: Pulmonary 24 HR Interval Summary Free Text/Dictation Patient condition is stable. Patient has been ambulating in the hallway with help of physical therapist. Denies any shortness of breath at rest but does complain of dyspnea on exertion. Denies any chest pain, wheezing, sputum production. Any hemoptysis. General exam; elderly male, awake and alert. Currently in no distress. Exam/Review of Systems Vital Signs Vitals Vital Signs Date Time Temp Pulse Resp B/P Pulse Ox O2 Delivery O2 Flow Rate FiO2 07/11/17 11:17 98.4 92 17 122/66 91 07/11/17 08:01 Nasal Cannula 4.0 Intake and Output 07/10/17 07/10/17 07/11/17 15:00 23:00 07:00 Intake Total 450 ml 240 ml Output Total 850 ml 400 ml Balance -400 ml -160 ml Exam HEENT exam; supple neck, no JVD. No lymphadenopathy. Midline trachea. No thyromegaly. Patient has fair dentition. Has bilateral intraocular lens implants. No lymphadenopathy or neck masses felt. Chest exam; diminished but clear breath sound. S1-S2 audible, no murmurs. Regular rhythm. Abdomen exam; soft, nontender. No organomegaly. Bowel sounds audible. Extremity exam; no peripheral edema. HEALTHCARE APPLICATIONS ANALYST exam; no focal deficit Results Result Diagram: 07/11/1752307/11/17 0524 Results 24 hrs Laboratory Tests Test 07/11/17 05:24 White Blood Count 9.3 Red Blood Count 5.77 Hemoglobin 10.9 L Hematocrit 36.3 L Mean Corpuscular Volume 62.9 L Mean Corpuscular Hemoglobin 18.9 L Mean Corpuscular Hemoglobin Concent 30.0 L Red Cell Distribution Width 18.1 H Platelet Count 194 Mean Platelet Volume Neutrophils % 74.9 Lymphocytes % 10.3 L Monocytes % 12.6 H Eosinophils % 1.5 Basophils % 0.3 Nucleated Red Blood Cells % 0.0 Neutrophils # (Manual) 7 Lymphocytes # 1.0 Monocytes # 1.2 H Eosinophils # 0.1 Basophils # 0.0 Nucleated Red Blood Cells # 0.0 Sodium Level 137 Potassium Level 3.7 Chloride Level 86 L Carbon Dioxide Level 42 *H Anion Gap 13 Blood Urea Nitrogen 15 Creatinine 0.69 Glucose Level 85 Calcium Level 8.2 L Medications Medications Current Medications Atorvastatin Calcium (Lipitor) 20 mg QHS PO Last administered on 07/10/17 21: 20; Admin Dose 20 MG; Start 07/04/17 at 21:00 Finasteride (Proscar) 5 mg DAILY PO Last administered on 07/11/17 08:41; Admin Dose 5 MG; Start 07/04/17 at 09:00 Terazosin HCl (Hytrin) 2 mg BID PO Last administered on 07/11/17 08:41; Admin Dose 2 MG; Start 07/04/17 at 09:00 Ondansetron HCl (Zofran Inj) 4 mg Q6H PRN IV NAUSEA AND/OR VOMITING; Start at 02:30 Nitroglycerin (Nitroglycerin (Sl Tab) 0.4 Mg) 1 tab Q5M PRN SL CHEST PAIN; Start 07/04/17 at 02:30 Acetaminophen (Tylenol Tab) 650 mg Q6H PRN PO PAIN LEVEL 1-3 OR FEVER; Start at 02:30 Acetaminophen/ Hydrocodone Bitart ([place] (5/325)) 1 tab Q6H PRN PO PAIN LEVEL 4 -6 Last administered on 07/09/17 23:46; Admin Dose 1 TAB; Start 07/04/17 at 02: 30 Acetaminophen/ Hydrocodone Bitart ([place] (5/325)) 2 tab Q6H PRN PO PAIN LEVEL 7 -10; Start 07/04/17 at 02:30 Morphine Sulfate (morphine) 2 mg Q4H PRN IV PAIN LEVEL 7-10; Start 07/04/17 at 02:30 Docusate Sodium (Colace) 100 mg Q12H PRN PO CONSTIPATION Last administered on 20:27; Admin Dose 100 MG; Start 07/04/17 at 02:30 Magnesium Hydroxide (Milk Of Mag) 30 ml DAILY PRN PO CONSTIPATION; Start at 02:30 Bisacodyl (Dulcolax) 5 mg DAILY PRN PO CONSTIPATION; Start 07/04/17 at 02:30 Pantoprazole (Protonix Tab) 40 mg DAILY@06 PO Last administered on 07/11/17 05 :15; Admin Dose 40 MG; Start 07/04/17 at 06:00 Miscellaneous Information (Pending Santyl Order For Wound Care) This patient francisco... PRN PRN XX WOUND CARE; Start 07/06/17 at 11:00 Dabigatran (PRADaxa) 150 mg BID PO Last administered on 07/11/17 08:40; Admin Dose 150 MG; Start 07/06/17 at 21:00 Levofloxacin (Levaquin) 750 mg DAILY PO Last administered on 07/11/17 08:40; Admin Dose 750 MG; Start 07/07/17 at 09:30 Diltiazem HCl (Cardizem Cd) 240 mg DAILY PO Last administered on 07/11/17 08: 42; Admin Dose 240 MG; Start 07/07/17 at 09:30 Diltiazem HCl (Cardizem Iv) 10 mg Q6 PRN IV PALPITATION; Start 07/07/17 at 09: 30 Al Hydrox/Mg Hydrox/Simethicone (Mag-Al Plus) 30 ml Q6H PRN PO GASTROINTESTINAL UPSET Last administered on 07/09/17 00:41; Admin Dose 30 ML; Start 07/09/17 at 00:00 MAGUE FLANNERY Jul 11, 2017 11:21
--- NOTE | 2017-07-11 12:57 | PDOCDIS ---
Discharge Instructions DIAGNOSIS Discharge Diagnosis Lung Mass, likely lung cancer. CONDITION Patient Condition: Guarded HOME CARE INSTRUCTIONS: Diet Instructions: Low Fat /CholesterolSpecial Diet: cardiac diet ACTIVITY: Activity Restrictions: Slowly Increase Activity Rest between Activity Bathing Restrictions: Shower FOLLOW UP/APPOINTMENTS Follow-up Plan 1. Follow-up with you PCP in 3-5 days ABHISHEK FERNANDO MD Jul 11, 2017 12:56
[2017-07-11] MEDS ORDERED: POLYETHYLENE GLYCOL 17 GM PACKET PO ONE (14:00)
[2017-07-11] MEDS ORDERED: NA PHOSPHATE/BIPHOS 133 ML ENEMA PR ONE (14:00)
--- NOTE | 2017-07-12 03:26 | DS ---
DATE OF ADMISSION: 07/04/2017 DATE OF DISCHARGE: 07/11/2017 FINAL DIAGNOSES: 1. Left lung mass was compatible with neoplastic: Stable. The patient has chosen not to have a biopsy. 2. Bilateral pleural effusions secondary to number 1. 3. Mediastinal and bilateral hilar lymphadenopathy secondary to number 1. 4. Cirrhosis with mild intra-abdominal ascites: Stable. We will monitor as an outpatient. 5. Atrial fibrillation with rapid ventricular response: Improved. The patient has achieved rate control with metoprolol. He is on Pradaxa as well. 6. Hypertension: Stable. We will continue outpatient medications. 7. Benign prostatic hypertrophy: Stable. Continue outpatient medications. 8. Chronic lower extremity lymphedema: Stable. This is bilateral, probably secondary to atrial fibrillation. 9. Hypothyroidism: Stable. Continue Synthroid for now. HOSPITAL COURSE: Patient is a pleasant 86-year-old gentleman with known lung mass for years. He has declined biopsy over the years. He presented with atrial fibrillation, on beta blockers and Pradaxa. He had worsening shortness of breath over the last 3 years and presented to the emergency department with volume overload and dyspnea. He has this known lung mass as stated above and was placed on a Cardizem drip. He achieved rate control and then his beta-ruthie was resumed. He was found to have a likely postobstructive pneumonia. The patient was started on Levaquin, which helped improve his symptoms. At the time of discharge, he was saturating 94 percent on 4 L nasal cannula. I had an extensive discussion with the patient regarding biopsy, prognosis and treatment options. The patient did elect not to have a lung biopsy. He stated that he is already 86 years old and has lived a good life. He wished to go home with Home Health and oxygen and then should he have any issues or he is unable to care for himself, he will contact his primary care physician and seek admission to a intermediate facility for physical and occupational therapy. In the interim, he will discuss with his family (nephew) to determine what the appropriate course of care would be. DISCHARGE CONDITION: Guarded. DISPOSITION: Discharged to home with family. DISCHARGE MEDICATIONS: 1. Atrovent 1 puff q.4 h p.r.n. shortness of breath. 2. Pradaxa 150 mg twice daily. 3. Atorvastatin 20 mg once daily. 4. Toprol-XL 100 mg once daily. 5. Terazosin 2 mg twice daily. 6. Lasix 20 mg once daily. 7. Levothyroxine 25 mcg once daily. 8. Finasteride 5 mg once daily. FOLLOWUP: The patient is to follow up with his primary care physician this week to determine the appropriate course of care. Dictated By: Bradley Sullivan MD /anmol/lilli /Document#: [id number]
== END 2017-07-11 17:45 | disposition home health service (06) | DRG 291 ==
LOC: E/R 22:52 → TEL 07-04 01:45
PROVIDERS: ADMIT Internal Medicine; ATTEND Internal Medicine
DX: I11.0 Hypertensive heart disease with heart failure (principal); J18.9 Pneumonia, unspecified organism; L03.115 Cellulitis of right lower limb; J44.0 Chronic obstructive pulmonary disease with (acute) lower respiratory infection; C34.90 Malignant neoplasm of unspecified part of unspecified bronchus or lung; L03.116 Cellulitis of left lower limb; N39.0 Urinary tract infection, site not specified; I48.91 Unspecified atrial fibrillation; I50.33 Acute on chronic diastolic (congestive) heart failure; I87.8 Other specified disorders of veins; E03.9 Hypothyroidism, unspecified; N40.0 Benign prostatic hyperplasia without lower urinary tract symptoms; Z87.891 Personal history of nicotine dependence; R09.02 Hypoxemia
CPT/HCPCS: 36415; 71010; 71275; 80048; 80053; 80061; 82550; 82553; 83605; 83735; 83880; 84100; 84439; 84443; 84484; 85025; 85610; 85730; 87040; 87086; 93005; 93306; 94640; 96374; 96375; J0696; J1940; J3370; J7030; J7050; Q9967